=== PATIENT | female | born 1985 | race Caucasian/White ===

== ENCOUNTER 2020-01-27 17:43 | Emergency (ER) | payer BC, SELFPAY ==
--- NOTE | ~2020-01-27 | CT_ITS ---
EXAMINATION: CT brain wo con DATE: 01/27/2020 18:08 INDICATION: Head injury. TECHNIQUE: Computed tomography (CT) of the head was performed without intravenous contrast. The mA wa s adjusted according to patient size. Iterative reconstruction technique was employed. The dose-lengt h product was 605.33 mGy-cm. COMPARISON: None FINDINGS: There is no intracranial hemorrhage, acute infarction, or abnormal intracranial mass lesion . The ventricles are normal in size. There is mucosal thickening in the paranasal sinuses. The mastoi d air cells are normal. There is cerumen in the external auditory canals. IMPRESSION: 1. Normal brain. Reviewed, dictated and finalized at location A. IMPRESSION: 1. Normal brain.
--- NOTE | ~2020-01-27 | CT_ITS ---
EXAMINATION: CT cervical spine wo con DATE: 01/27/2020 18:08 INDICATION: Head injury. TECHNIQUE: Computed tomography (CT) of the cervical spine was performed without intravenous contrast. Automated exposure control and iterative reconstruction technique were employed. The dose-length pro duct was 134.44 mGy-cm. COMPARISON: None FINDINGS: There is kyphosis of cervical spine. Vertebral body heights are normal. There is mildly dec reased disc height at C5-C6. There is a benign bone island in T1 spinous process. The following disc levels are specifically discussed: C2-C3: There is no uncovertebral joint osteoarthritis. There is mild left facet joint osteoarthritis. There is no neural foraminal stenosis. There is no central canal stenosis. C3-C4: There is no uncovertebral joint osteoarthritis. There is no facet joint osteoarthritis. There is no neural foraminal stenosis. There is no central canal stenosis. C4-C5: There is no uncovertebral joint osteoarthritis. There is mild left facet joint osteoarthritis. There is no neural foraminal stenosis. There is no central canal stenosis. C5-C6: There is no uncovertebral joint osteoarthritis. There is no facet joint osteoarthritis. There is no neural foraminal stenosis. There is no central canal stenosis. C6-C7: There is no uncovertebral joint osteoarthritis. There is no facet joint osteoarthritis. There is no neural foraminal stenosis. There is no central canal stenosis. C7-T1: There is no uncovertebral joint osteoarthritis. There is moderate bilateral facet joint osteoa rthritis. There is no neural foraminal stenosis. There is no central canal stenosis. IMPRESSION: 1. No fracture. 2. Mild cervical spondylosis. Reviewed, dictated and finalized at location A.
[2020-01-27 17:48] VITALS: BP 133/98; PULSE 95; RESP 18; TEMP 36.6; O2SAT 100
--- NOTE | 2020-01-27 17:59 | ED.FALL ---
HPI - Fall General Chief Complaint: Fall Stated Complaint: fall from rope onto head Time Seen by Provider: 01/27/20 17:58 History of Present Illness HPI Narrative: Patient is a 34-year-old female who was on a ropes course when she fell 10 to 15 feet. She struck the ground with her feet and then moved sideways onto her chest and face. Brief LOC with confusion immediately afterwards. Did not know her daughter was or what was going on. This is since improved. She has pain to her lip which is swollen. No nausea/vomiting/change in vision or hearing. Took ibuprofen for headache Related Data Home Medications Medication Instructions Recorded Confirmed dextroamphetamine-amphetamine 01/27/20 01/27/20 montelukast mg 01/27/20 Allergies Allergy/AdvReac Type Severity Reaction Status Date / Time acetaminophen Allergy Unknown Unknown Verified 01/27/20 17:51 codeine Allergy Unknown Itching Verified 01/27/20 17:51 Review of Systems Review of Systems: All systems reviewed & are unremarkable except as noted in HPI and below Constitutional: Constitutional: Denies chills, Denies fever(s) and Denies weakness Eyes: Eyes: Denies change in vision and Denies photophobia ENT: Reports sore throat Comments: Lip pain Neurologic: Reports confusion, Reports syncope, Denies headache(s), Denies focal weakness and Denies numbness PMFSH Past Medical History Medical History (Updated 01/27/20 @ 18:25 by Dwayne Gutiérrez MD) Anxiety Surgical History Surgical History (Updated 01/27/20 @ 18:00 by Dwayne Gutiérrez MD) No history of previous surgery Social History Social History (Updated 01/27/20 @ 18:01 by Dwayne Gutiérrez MD) Smoking status: Never smoker Gender identity (if verbalized by the patient): Female Exam Narrative: Exam Narrative: GENERAL: Uncomfortable-appearing, well-nourished, and in no acute distress. HEAD: Normocephalic, atraumatic. EYES: PERRL and EOMI. ENT: Mucous membranes moist. Swollen right lower lip with overlying abrasion. No through and through laceration. Normal teeth. CHEST: Clear to auscultation. No respiratory distress. HEART: Regular rate and rhythm. Normal peripheral pulses. EXTREMITIES: Normal range of motion. No edema. Abrasions to right ankle with mild anterior tenderness but range of motion intact and no swelling or bruising. SKIN: Warm, dry, no rash. NEURO: No focal deficits. Alert and oriented x3. Course Course Emergency Course: Informed of results. Impression. Discharge home. Vital Signs Vital signs: Vital Signs Temperature 98 F 01/27/20 17:48 Pulse Rate 95 01/27/20 17:48 Respiratory Rate 18 01/27/20 17:48 Blood Pressure 133/98 H 01/27/20 17:48 Pulse Oximetry 100 01/27/20 17:48 Temperature 98 F 01/27/20 17:48 Pulse Rate 95 01/27/20 17:48 Respiratory Rate 18 01/27/20 17:48 Blood Pressure 133/98 H 01/27/20 17:48 Pulse Oximetry 100 01/27/20 17:48 Discharge Plan Discharge Clinical Impression: Concussion with loss of consciousness Patient Disposition: Home, Self-Care Condition: Stable Instructions: Concussion (ED) Additional Instructions: Return the ER if you have fever over 100.4 ?F, you cannot keep down food or water, you have chest pain or shortness of breath, you have additional concerns. Prescriptions: New cyclobenzaprine 10 mg tablet 10 mg PO TID PRN (Reason: muscle spasm) Qty: 10 RF: 0 ondansetron 4 mg tablet,disintegrating 4 mg PO Q6H PRN (Reason: nausea and vomiting) Qty: 10 RF: 0 naproxen 500 mg tablet 500 mg PO BID Qty: 20 RF: 0 No Action dextroamphetamine-amphetamine 20 mg tablet RF: 0 montelukast 10 mg tablet RF: 0 Follow-up/Referrals: Jocelyn,Kat Ortiz, PRODUCT MARKETING INTERN-[employer] [Primary Care Provider] - 1 Week
[2020-01-27 18:31] VITALS: BP 128/95; PULSE 88; RESP 12; O2SAT 99
== END 2020-01-27 18:33 | disposition home or self-care (01) ==
PROVIDERS: Emergency Provider Emergency Medicine; PCP Nurse Practitioner Family
DX: S06.0X9A Concussion with loss of consciousness of unspecified duration, initial encounter (principal); W17.89XA Other fall from one level to another, initial encounter
CPT/HCPCS: 70450; 72125; 99284

== ENCOUNTER 2020-02-05 09:54 | Outpatient (CLI) | payer BC, SELFPAY ==
--- NOTE | ~2020-02-05 | XR_ITS ---
EXAMINATION: XR hand LT min 3V, XR wrist LT min 3V EXAM DATE: 02/05/2020 10:17 INDICATION: No known recent injury provided at this time. Pain of the left hand and wrist. TECHNIQUE: Left hand frontal, lateral and oblique projections obtained and reviewed. Left wrist fron laurita, frontal with ulnar deviation, oblique and lateral projections obtained and reviewed. There is n o prior study for comparison. FINDINGS: Left metacarpal bones are unremarkable. Left wrist scapholunate joint space is maintained . There are no acute fractures or dislocations identified. There is no subcutaneous gas. The soft t issue is unremarkable. There are no radiopaque foreign bodies. There are no bony erosions identifi ed. IMPRESSION: 1. Unremarkable left hand, wrist exam. Reviewed, dictated and finalized at location B. IMPRESSION: 1. Unremarkable left hand, wrist exam.
== END 2020-02-05 09:55 ==
LOC: MICIMG 09:55
PROVIDERS: PCP Nurse Practitioner Family; Visit Provider Nurse Practitioner Family
DX: M25.532 Pain in left wrist (principal)
CPT/HCPCS: 73110; 73130

== ENCOUNTER 2020-04-04 13:56 | Outpatient (CLI) | payer BC, SELFPAY ==
--- NOTE | ~2020-04-04 | MR_ITS ---
EXAMINATION: MR wrist LT w con DATE: 04/04/2020 16:24 INDICATION: Pancreatic fibrocartilage complex injury presenting with left wrist pain post fall while climbing 2 months prior. TECHNIQUE: Magnetic resonance imaging (MRI) of the left wrist was performed following intra-articular gadolinium contrast injection and without intravenous contrast. Details of the radiocarpal joint inj ection have been dictated separately. Sequences included coronalT1-weighted FS FSE obtained before t he joint injection and post injection axial, sagittal and coronal T1-weighted FS FSE and T2-weighted FS FSE. COMPARISON: None FINDINGS: Intrinsic ligaments: The scapholunate and lunotriquetral ligaments are normal. Triangular fibrocartilage complex (TFCC): The triangular fibrocartilage including its foveal and styloid attachments as well as the dorsal and volar radioulnar ligaments are normal. The ulnar collateral ligament, ulnotriquetral ligament and men iscal homologue are normal. The extensor carpi ulnaris tendon sheath is normal. Extensor wrist: Extensor tendons of the wrist are normal. There is some contrast extending along the tendon sheaths o f the second and third dorsal compartments and extending into the surrounding subcutaneous tissues co nsistent with extravasation of a likely partially extra-articular contrast injection. Flexor wrist: The flexor tendons of the wrist are normal. No abnormality in the carpal tunnel with normal median n erve. Guyon's canal: Guyon's canal including the ulnar nerve and artery are normal. Bones/other: There is prominent marrow edema throughout the capitate. No fracture line is evident either on the cu rrent MRI or the prior radiographs which could represent a bone contusion although given the interval of elapsed time could not exclude a healing nondisplaced fracture. Marrow signal is otherwise normal throughout the remainder of the visualized bones. No pathologic marrow replacing process. Joint spac es appear normal with no focal cartilage irregularities. There is a small joint effusion at the dorsa l aspect of the midcarpal joint which is without evident contrast signal suggesting this is unrelated to the radiocarpal joint injection and is likely reactive related to the apparent capitate injury. IMPRESSION: 1. Marrow edema throughout the capitate consistent with either bone contusion or occult healing nondi splaced fracture with likely associated small reactive joint effusion in the midcarpal joint. 2. Normal triangular fiber cartilage complex and intrinsic ligaments of the proximal carpal row. Reviewed, dictated and finalized at location H. NATION TECHNICIAN IMPRESSION: 1. Marrow edema throughout the capitate consistent with either bone contusion o r occult healing nondisplaced fracture with likely associated small reactive laura int effusion in the midcarpal joint. 2. Normal triangular fiber cartilage complex and intrinsic ligaments of the pro ximal carpal row.
--- NOTE | ~2020-04-04 | XR_ITS ---
EXAMINATION: XR fl inj wrist LT for MR/CT DATE: 04/04/2020 15:29 INDICATION: Left wrist triangular fibrocartilage tear. TECHNIQUE: A time-out was performed to verify the patient's name, date of , and procedure to b e performed. The skin overlying the left radiocarpal joint was prepped and draped in usual sterile fa shion. Anesthetic was administered with 1% lidocaine subcutaneously. A 23 G needle was advanced und er fluoroscopic guidance into the joint. Subsequently, injectate consisting of 2 mL of 1:200 Multiha nce, 1:4 1% lidocaine, and 1:4 Omnipaque 240 was instilled. The needle was removed and the entry sit e was cleaned and dressed. There were no immediate complications. Fluoroscopy exposure time was 0.4 minutes. The total number of images was 4. FINDINGS: Real-time fluoroscopy demonstrates the needle and contrast in the left radiocarpal joint. IMPRESSION: 1. Successful left radiocarpal joint injection of contrast for subsequent MR arthrography. Reviewed, dictated and finalized at location A. NT SUPPORT REPRESENTATIVE IMPRESSION: 1. Successful left radiocarpal joint injection of contrast for subsequent MR ar thrography.
== END 2020-04-04 13:57 ==
PROVIDERS: PCP Nurse Practitioner Family; Visit Provider Internal Medicine
DX: S69.82XA Other specified injuries of left wrist, hand and finger(s), initial encounter (principal); S63.8X2A Sprain of other part of left wrist and hand, initial encounter
CPT/HCPCS: 20605; 73222; 77002; A9577; Q9966

== ENCOUNTER 2021-02-02 19:05 | Emergency (ER) | payer BC, SELFPAY ==
--- NOTE | ~2021-02-02 | XR_ITS ---
EXAMINATION: XR femur LT min 2V, XR femur RT min 2V DATE: 02/02/2021 22:16 (accession [id number]), 02/02/2021 22:17 (accession [id number]) INDICATION: Pain and cramping to the bilateral mid to upper thighs with popping sensation when runnin g. TECHNIQUE: 1. Overlapping proximal and distal, AP and lateral views of the left femur were obtained. 2. Overlapping proximal and distal, AP and lateral views of the right femur were obtained. COMPARISON: None FINDINGS: Normal alignment at the bilateral hips and knees. No fracture or suspected avascular necrosis. There is decreased anterosuperior femoral head/neck offset on both the left and right with cystic change at the right anterosuperior femoral head neck junction which can be seen in the setting of cam-type fem oral acetabular impingement. Bilateral hip joint spaces are normal with tiny marginal osteophytes abo ut the femoral heads consistent with minimal osteoarthritis. Bilateral knee joint spaces appear bonilla l on nonweightbearing imaging. No knee joint effusions. Soft tissues are unremarkable. IMPRESSION: 1. Bilateral decreased femoral head neck offset which can predispose towards cam-type femoral acetabu lar impingement. No acute osseous abnormality. Reviewed, dictated and finalized at location A. IMPRESSION: 1. Bilateral decreased femoral head neck offset which can predispose towards ca m-type femoral acetabular impingement. No acute osseous abnormality.
[2021-02-02 19:22] VITALS: BP 125/86; PULSE 87; RESP 18; TEMP 37.1; O2SAT 100
--- NOTE | 2021-02-02 22:13 | ED.LOWEXIN ---
HPI - Extremity Injury (Lower) General Chief Complaint: Extremity Injury, Lower Stated Complaint: leg pain Time Seen by Provider: 02/02/21 21:35 Source: patient Mode of arrival: ambulatory Limitations: no limitations History of Present Illness HPI Narrative: Patient is a 35-year-old female complaining of bilateral thigh pain after playing kickball night and heard something pop after catching the ball and kicking. Patient denies any knee or leg pain. Patient ambulatory after the incident. Patient denies any other pain or injuries per Related Data Home Medications Medication Instructions Recorded Confirmed dextroamphetamine-amphetamine 01/27/20 01/27/20 montelukast mg 01/27/20 Allergies Allergy/AdvReac Type Severity Reaction Status Date / Time acetaminophen Allergy Unknown Unknown Verified 01/27/20 17:51 codeine Allergy Unknown Itching Verified 01/27/20 17:51 Review of Systems Review of Systems: All systems reviewed & are unremarkable except as noted in HPI and below Constitutional: Constitutional: Denies body ache(s), Denies chills, Denies excessive sweating, Denies fatigue, Denies fever(s), Denies headache(s), Denies lethargy, Denies malaise, Denies weakness and Denies weight loss Eyes: Eyes: Denies blurry vision, Denies change in vision and Denies loss of vision ENT: Denies dizziness, Denies ear discharge, Denies headache(s), Denies lip swelling, Denies epistaxis, Denies nasal congestion, Denies neck pain, Denies throat swelling and Denies tongue swelling Cardiovascular: Cardiovascular: Denies chest pain, Denies chest pain at rest, Denies chest pain with activity, Denies diaphoresis, Denies rapid heart rate, Denies edema, Denies irregular heart rhythm, Denies lightheadedness, Denies palpitations, Denies dyspnea and Denies dyspnea on exertion Respiratory: Respiratory: Denies chest congestion, Denies cough, Denies hemoptysis, Denies dyspnea and Denies dyspnea on exertion Gastrointestinal: Gastrointestinal: Denies abdominal pain, Denies melena, Denies hematochezia, Denies diarrhea, Denies nausea, Denies vomiting and Denies hematemesis Musculoskeletal: Musculoskeletal: Denies abnormal gait, Denies deformity, Denies joint swelling, Denies limited range of motion, Denies neck pain and Denies numbness Neurologic: Denies Abnormal speech present, Denies abnormal gait, Denies confusion, Denies dizziness, Denies headache(s), Denies focal weakness, Denies loss of vision, Denies numbness, Denies Other visual disturbances, Denies Sensory deficit (Neuro) and Denies weakness Psychiatric: Psychiatric: Denies confusion, Denies depression, Denies auditory hallucinations, Denies homicidal ideation and Denies suicidal ideation Endocrine: Endocrine: Denies cold intolerance, Denies excessive sweating, Denies fatigue, Denies heat intolerance and Denies palpitations Hematologic/Lymphatic: Hematologic/Lymphatic: Denies easy bleeding and Denies easy bruising Allergic/Immunologic: Allergic/Immunologic: Denies lip swelling, Denies throat swelling and Denies tongue swelling PMFSH Past Medical History Medical History (Updated 02/02/21 @ 23:44 by Gary Villatoro MD) Anxiety Surgical History Surgical History (Updated 01/27/20 @ 18:00 by Dwayne Gutiérrez MD) No history of previous surgery Social History Social History (Updated 01/27/20 @ 18:01 by Dwayne Gutiérrez MD) Smoking status: Never smoker Gender identity (if verbalized by the patient): Female Comments Past medical history: ADD Family history: None contributory Social history: Non-smoker, no EtOH or drug use Exam Const: General: cooperative, healthy appearing, comfortable, no acute distress, well developed, alert and awake; No confusion Orientation/consciousness: oriented to person, oriented to place, oriented to time, patient oriented x3 and No confusion Limitations: no limitations HENMT: Head: normal to inspection, normocephalic and atraumatic Ears: heari
[2021-02-02] MEDS: CYCLOBENZAPRINE HCL 10 MG TABLET PO (22:37)
[2021-02-02 23:54] VITALS: BP 127/92; PULSE 73; RESP 16; TEMP 37.2; O2SAT 100
== END 2021-02-02 23:56 | disposition home or self-care (01) ==
PROVIDERS: Emergency Provider Emergency Medicine; PCP Nurse Practitioner Family
DX: S76.919A Strain of unspecified muscles, fascia and tendons at thigh level, unspecified thigh, initial encounter (principal); Y93.6A Activity, physical games generally associated with school recess, summer camp and children; F41.9 Anxiety disorder, unspecified; F98.8 Other specified behavioral and emotional disorders with onset usually occurring in childhood and adolescence; X50.9XXA Other and unspecified overexertion or strenuous movements or postures, initial encounter
CPT/HCPCS: 73552; 96372; 99284; A9270; J1100

== ENCOUNTER 2021-06-18 14:56 | Emergency (ER) | payer BC, SELFPAY ==
[2021-06-18 15:03] VITALS: BP 120/84; PULSE 79; RESP 16; TEMP 37.2; O2SAT 100
--- NOTE | 2021-06-18 15:24 | ED.URI ---
HPI - URI/Sore Throat General Chief Complaint: Upper Respiratory Infection Stated Complaint: Sore Throat Time Seen by Provider: 06/18/21 15:20 Source: patient, RN notes reviewed and old records reviewed Mode of arrival: ambulatory Limitations: no limitations History of Present Illness HPI Narrative: 36-year-old female presents to [facility] with complaints of sore throat, ear pain since Tuesday evening Patient states that her throat feels like she has knives in it with painful swallowing,and bilateral ears are on fire. Patient denies any known fevers, chills or sweats, denies any cough or runny nose and denies any body aches. Patient reports that she has some headache discomfort. Patient has not had COVID or Flu immunizations. Patient rates her pain 8/10 and has been taking Ibuprofen and Tylenol for her symptoms. MD elicited complaint: sore throat Onset (ago): day(s) (3) Consistency: constant Severity: moderate Pain scale (0-10): 8 Related Data Home Medications Medication Instructions Recorded Confirmed dextroamphetamine-amphetamine 20 mg PO DAILY 01/27/20 06/18/21 dextroamphetamine-amphetamine 10 mg PO AC 06/18/21 06/18/21 Allergies Allergy/AdvReac Type Severity Reaction Status Date / Time codeine Allergy Mild Itching Verified 06/18/21 15:17 Review of Systems Review of Systems: CONSTITUTIONAL: Denies any known fever, chills, or sweats. EYES: Denies visual changes, redness, or discharge. ENT: Denies rhinorrhea, congestion,positive for sore throat, bilateral ear otalgia. CARDIOVASCULAR: Denies chest pain, palpitations, or edema. RESPIRATORY: Denies cough or dyspnea. GASTROINTESTINAL: Denies abdominal pain, nausea, vomiting, or diarrhea. GENITOURINARY: Denies dysuria or hematuria. SKIN: Denies rash or itching. MUSCULOSKELETAL: Denies back pain, joint pain, or myalgia. NEUROLOGIC: Positive for some headache,no numbness, or weakness. PSYCHIATRIC: Positive for history of anxiety or depression. All systems reviewed & are unremarkable except as noted in HPI and below PMFSH Past Medical History Medical History (Updated 06/18/21 @ 15:53 by Olya Hernandez NP) ADD (attention deficit disorder) Anxiety Surgical History Surgical History (Updated 06/18/21 @ 15:53 by Olya Hernandez NP) History of tonsillectomy Social History Social History Smoking status: Never smoker Gender identity (if verbalized by the patient): Female Comments At time of signature, agree with nursing past medical, surgical, social and family history. There is no relevant family history pertinent to the presenting complaint Exam Narrative: GENERAL: Ill appearing, well-nourished, and in no acute distress. HEAD: Normocephalic, atraumatic. EYES: PERRLA and EOMI. ENT: Nares clear, no rhinorrhea or epistaxis. Mucous membranes moist.TM's normal with good light reflex, soft ear wax present, Throat red with no exudates or lesions, tonsils absent NECK: Supple. lymphadenopathy CHEST: Clear to auscultation. No respiratory distress.no cough noted SAO2 100% on room air HEART: Regular rate and rhythm. No murmur heard. Normal peripheral pulses. ABDOMEN: Soft, nontender, nondistended, normal active bowel sounds. EXTREMITIES: Normal range of motion. No edema. SKIN: Warm, dry, no rash. NEURO: No focal deficits. Alert and oriented x3. Course Course Level of Care: Express Care Visit Vital Signs Vital signs: Vital Signs Temperature 37.2 C 06/18/21 15:03 Pulse Rate 79 06/18/21 15:03 Respiratory Rate 16 06/18/21 15:03 Blood Pressure 120/84 06/18/21 15:03 Pulse Oximetry 100 06/18/21 15:03 Temperature 37.2 C 06/18/21 15:03 Pulse Rate 79 06/18/21 15:03 Respiratory Rate 16 06/18/21 15:03 Blood Pressure 120/84 06/18/21 15:03 Pulse Oximetry 100 06/18/21 15:03 MDM - URI/Sore Throat Differential Diagnosis Differential diagnosis: Likely upper respiratory infecti
== END 2021-06-18 15:43 | disposition home or self-care (01) ==
PROVIDERS: Emergency Provider Registered Nurse; PCP Nurse Practitioner Family
DX: U07.1 COVID-19 (principal); F98.8 Other specified behavioral and emotional disorders with onset usually occurring in childhood and adolescence
CPT/HCPCS: 87081; 87426; 87880; 99213; C9803; G0463

== ENCOUNTER 2023-11-21 14:26 | Emergency (ER) | payer BC, SELFPAY ==
[2023-11-21 14:30] VITALS: BP 144/89; PULSE 61; RESP 15; TEMP 36.7; O2SAT 100
--- NOTE | 2023-11-21 16:30 | PC.NURSE ---
Patient seen ambulating out of ED with steady gait and in no acute distress.
--- NOTE | 2023-11-21 17:03 | PC.NURSE ---
Patient not found when called for repeat VS.
== END 2023-11-21 17:39 | disposition left against medical advice (07) ==
PROVIDERS: PCP Nurse Practitioner Family
DX: R10.9 Unspecified abdominal pain (principal)
CPT/HCPCS: 99199

== ENCOUNTER 2024-07-13 14:28 | Outpatient (CLI) | payer BC, SELFPAY ==
[2024-07-13 15:01] LABS: Anion Gap 10 mmol/L (4-12); Blood Urea Nitrogen 5 mg/dL (7-17); Calcium 8.6 mg/dL (8.4-10.2); Carbon Dioxide 29 mmol/L (22-30); Chloride 103 mmol/L (98-107); Estimated Glomerular Filt Rate > 60; Glucose 91 mg/dL (65-110); Potassium 3.1 mmol/L (3.4-5.0); Sodium 142 mmol/L (137-145)
[2024-07-13 15:05] LABS: Basophils Percent Auto 0.4 % (0.2-1.2); Eosinophils Absolute Auto 0.2 K/mm3 (0-0.3); Eosinophils Percent Auto 3.1 % (0-4.4); Hematocrit 35.7 % (37.0-47.0); Hemoglobin 12.2 g/dL (12.0-15.0); Immature Granulocyte Absolute 0.02 K/mm3 (0.00-0.031); Immature Granulocyte Percent A 0.4 % (0-0.5); Lymphocytes Absolute Auto 1.42 K/mm3 (0.9-3.2); Lymphocytes Percent Auto 29.3 % (18.3-44.2); Mean Corpuscular HGB Conc 34.2 g/dl (32-36); Mean Corpuscular Hemoglobin 30.2 pg (26-34); Mean Corpuscular Volume 88.4 fl (80-100); Mean Platelet Volume 9.4 fl (7.4-10.4); Monocytes Absolute Auto 0.4 K/mm3 (0.1-0.6); Monocytes Percent Auto 8.3 % (2.6-8.5); Neutrophils Absolute Auto 2.8 K/mm3 (1.3-6.7); Neutrophils Percent Auto 58.5 % (45.5-73.1); Platelet Count Result 238 k/mm3 (150-375); Red Blood Count 4.04 M/mm3 (4.2-5.4); Red Cell Distribution Width 14.9 % (11.5-14.5); White Blood Count 4.8 K/mm3 (4.5-10.0)
[2024-07-13 15:26] LABS: Iron 70 ug/dL (37-170)
[2024-07-13 15:37] LABS: Percent Iron Saturation 25 % (20-50)
[2024-07-16 15:57] LABS: Immunoglobulin A 202 mg/dL (47-310); TTG IGA AB <1.0 U/mL
[2024-07-17 17:03] LABS: Beef IgE (F27) <0.10 kU/L; Lamb (F88) IgE <0.10 kU/L; Lamb Class 0; Pork (F26) IgE <0.10 kU/L; Pork Class 0
== END 2024-07-13 14:29 | disposition home or self-care (01) ==
LOC: ANHLAB 14:30
PROVIDERS: PCP Nurse Practitioner Family; Visit Provider Nurse Practitioner Family
DX: R11.2 Nausea with vomiting, unspecified (principal); K21.9 Gastro-esophageal reflux disease without esophagitis; R19.7 Diarrhea, unspecified; R10.9 Unspecified abdominal pain
CPT/HCPCS: 36415; 80048; 82784; 83540; 83550; 85025; 86008; 86364

== ENCOUNTER 2024-07-25 07:40 | Outpatient (CLI) | payer BC, SELFPAY ==
--- NOTE | ~2024-07-25 | NM_ITS ---
EXAM: NM gastric emptying study DATE: 07/25/2024 13:40 INDICATION: Nausea with vomiting, unspecified. TECHNIQUE: A gastric emptying study was performed using the methodology of Maryam RANDOLPH, et al. J Nucl Med 2007; 48:568-572. The patient was given a meal consisting of 2 scrambled eggs labeled with 1 mCi Tc-99m sulfur colloid, 2 slices of toast, two packages of jam, and approximately 120 mL of water. Si multaneous anterior and posterior 1-min images of the abdomen were obtained with the patient supine a t multiple time points over a total period of 4 hours. The geometric mean of anterior and posterior v iews was determined, and the percentage retention was calculated for each time point. COMPARISON: CT abdomen and pelvis 01/16/2016 FINDINGS: Gastric retention of the radiotracer-labeled meal was 52%, 13%, and 7% at the 1-hour, 2-ho ur, and 4-hour time points, respectively. With this technique, apparent rapid gastric emptying is sug gested by <30% gastric retention at 1 hour. Delayed gastric emptying is defined by gastric retention of >90% at 1 hour, >60% retention at 2 hours, or >10% retention at 4 hours. IMPRESSION: 1. Normal gastric emptying. Reviewed, dictated and finalized at location B. IMPRESSION: 1. Normal gastric emptying.
--- OUTSIDE RECORDS SUMMARY | 2024-07-25 07:44 | XMS_ITS | Data Portability ---
Author Organization [place] - [facility], [facility]_ Family Practice Address [address] [place] [address] Care Team Providers Care Football Pad Repairer Name Role Phone DARIEN SANDERSON Primary Care Provider [phone] DARIEN SANDERSON Referring Provider [phone] SAYDA PAULSON Primary Care Provider DORON CAST Psychiatrist Assessment No assessment recorded. Plan of Treatment Reminders Order Date Submit Date Provider Last Modified By Organization Details Last Modified Time Details Appointments None record ed. Lab None record ed. Referral None record ed. Procedures None record ed. Surgeries None record ed. Imaging None record ed. Medication Orders None record ed. Patient TargetsNo targets recorded. Patient InstructionsNo instructions recorded. Reason for Referral None Reported. Results Created Date Observation Date Name Description Value Unit Range Abnormal Flag Note LastModifiedBy Organization Detail LastModifiedTime Result Notes None recorded. Problems Name Problem SNOMED Code Status Onset Date Resolution Date Notes Provider Name and Address Organization Details Recorded Time Lesion of skin of face 626534912900 Active 2021 Not Available [facility] 3 19:01:15 Excessive cerumen in ear canal 506155017 Active 2016 Not Available [facility] 3 19:01:15 Pain of right elbow joint 2387831100683 9109 Active 2018 Not Available [facility] 3 19:01:15 Otalgia 60466967 Active 2016 Not Available [facility] 3 19:01:15 Otalgia 20257393 Active 2016 Not Available [facility] 3 19:01:15 Wrist joint pain 112621190 Active Not Available [facility] 3 19:01:15 Anemia 834872401 Active Not Available [facility] 3 19:01:15 Attention deficit hyperactiv ity disorder, predominan tly inattentiv e type 80990196 Active 2017 Not Available [facility] 3 19:01:15 Sinusitis 65001685 Active Not Available [facility] 3 19:01:16 Disorder of vitamin D 564078308 Active 2020 Not Available [facility] 3 19:01:16 Postconcus heather syndrome 92294139 Active 2019 Not Available [facility] 3 19:01:16 Attention deficit hyperactiv ity disorder 327338090 Active 2016 Not Available [facility] 3 19:01:16 Cellulitis of upper limb 031131364 Active Not Available [facility] 3 19:01:16 Anxiety 17809884 Active Not Available [facility] 3 19:01:16 Influenza 2492963 Active Not Available [facility] 3 19:01:16 Otitis media 19228612 Active 2016 Not Available [facility] 3 19:01:16 Otitis media 47918045 Active 2016 Not Available [facility] 3 19:01:16 Acid reflux 642171651 Active 2019 Not Available [facility] 3 19:01:16 Problem Notes None recorded. Procedures Surgical History Date Name Laterality Status Provider Name and Address Organization Details Recorded Time excision of cyst of ovary completed Not Available [facility] 05/23/2022 18:59:45 Tonsillectomy completed Not Available [facility] 05/23/2022 18:59:45 Foot Surgery completed Not Available [facility] 05/23/2022 18:59:45 Imaging Results None recorded. Procedure Notes None recorded. Medical Equipment None Reported. Allergies Allergen ID Allergen Name Allergen Category Reaction Reaction Severity Criticality Documentation Date Start Date Code Code System Note Provider Name and Address Organization Details Recorded Time [id number] codeine medicatio n itching Not available Not available 05/23/2022 2670 RxNorm nause a Not Available [facility] 3 19:02:45 Medications Name Sig Start Date Stop Date Status Note LastModified by Organization Details LastModified Time cyclobenza belén 10 mg tablet TAKE 1 TABLET BY MOUTH THREE TIMES DAILY NEEDED FOR MUSCLE SPASM 03/17 completed Not Available Not Available Not Available amoxicilli n 500 mg capsule Take 4 capsule( s) EVERY 1 hour prior to procedur e by oral route. 12/19 completed Not Available Not Available Not Available Augmentin 875 mg-125 mg tablet Take 1 tablet every 12 hours by oral route for 10 days. 09/10 completed Not Available Not Available Not Available prednisone 10 mg tablet Take by oral route. active Not Available Not Available No t Available trazodone 50 mg tablet TAKE 1 TABLET BY MOUTH ONCE DAILY AT BEDTIME 10/14 completed Not Available Not Available Not Available azithromyc in 250 mg tablet Take EVERY DAY by oral route active Not Available Not Available No t Available ibuprofen 800 mg tablet Take 1 tablet 3 times a day by oral route as needed. active Not Available Not Available No t Available valacyclov ir 1 gram tablet Take 2 tablets by mouth twice a day for 1 day. Take at onset of cold sore active Not Available Not Available No t Available meloxicam 15 mg tablet 03/17 completed Not Available Not Available Not Available prednisone 20 mg tablet Take 2 tablets every day by oral route for 5 days. active Not Available Not Available No t Available dextroamph etamine-am phetamine 10 mg tablet TAKE 1 TABLET BY MOUTH EVERY DAY AT NOON active Not Available Not Available No t Available Debrox 6.5 % ear drops INSTILL 5 DROPS INTO AFFECTED EAR(S) BY OTIC ROUTE 2 TIMES PER DAY 10/27 completed Not Available Not Available Not Available sulfametho xazole 800 mg-trimeth oprim 160 mg tablet Take 1 tablet every 12 hours by oral route for 10 days. 07/18 completed Not Available Not Available Not Available amoxicilli n 500 mg tablet Take 1 tablet twice a day by oral route for 10 days. 12/19 completed Not Available Not Available Not Available amoxicilli n 875 mg tablet Take 1 tablet every 12 hours by oral route for 10 days. active Not Available Not Available No t Available alprazolam 0.25 mg tablet 07/18 completed Not Available Not Available Not Available famotidine 20 mg tablet TAKE 1 TABLET BY MOUTH EVERY DAY FOR 30 DAYS. active do not refill for more than 30 days Not Available Not Available Not Available prednisolo ne acetate 1 % eye drops,susp ension INSTILL 1 DROP INTO RIGHT EYE THREE TIMES DAILY FOR 7 DAYS FOR INFLAMAT ION active Not Available Not Available No t Available methocarba mol 750 mg tablet Take 1 tablet 3 times a day by oral route as needed. active Not Available Not Available No t Available dextroamph etamine-am phetamine ER 20 mg 24hr capsule,ex tend release take one daily 10/06 completed Not Available Not Available Not Available Soma 350 mg tablet Take 1 tablet every day by oral route at bedtime. active Not Available Not Available No t Available cephalexin 500 mg capsule TAKE 1 CAPSULE BY MOUTH TWICE DAILY FOR 7 DAYS 10/27 completed Not Available Not Available Not Available oseltamivi r 75 mg capsule Take 1 capsule twice a day by oral route for 5 days. 03/03 completed Not Available Not Available Not Available neomycin-p olymyxin-d exameth 3.5 mg/mL-10,0 00 unit/mL-0. 1% eye drops active Not Available Not Available Not Available dexamethas one 4 mg tablet 09/08 completed Not Available Not Available Not Available dextroamph etamine-am phetamine 20 mg tablet TAKE 1 TABLET BY MOUTH EVERY DAY active Not Available Not Available No t Available diclofenac sodium 75 mg tablet,del ayed release Take 1 tablet twice a day by oral route. active Not Available Not Available No t Available montelukas t 10 mg tablet TAKE 1 TABLET BY MOUTH EVERY DAY active do not refill for more than 30 days Not Available Not Available Not Available mupirocin 2 % topical ointment APPLY SPARINGL Y TO AFFECTED AREA TWICE A DAY active Not Available Not Available No t Available ibuprofen 600 mg tablet Take 1 tablet 3 times a day by oral route. 03/03 completed Not Available Not Available Not Available methylpred nisolone 4 mg tablets in a dose pack Take as directed on package. 09/08 completed Not Available Not Available Not Available ondansetro n 4 mg disintegra ting tablet DISSOLVE 1 TABLET ON THE TONGUE EVERY 6 TO 8 HOURS FOR 5 DAYS NEEDED active Not Available Not Available No t Available fluticason e propionate 50 mcg/actuat ion nasal spray,susp ension [place] 2 sprays every day by intranas al route in the evening. 12/28 completed Not Available Not Available Not Available sertraline 50 mg tablet Take 1/2 tablet by mouth once daily for 1 week, then increase to 1 tablet by mouth daily. active Not Available Not Available No t Available dextroamph etamine-am phetamine 5 mg tablet TAKE 1 TABLET BY MOUTH ONCE DAILY NEEDED IN THE AFTERNOO N 10/28 completed Not Available Not Available Not Available naproxen 500 mg tablet TAKE 1 TABLET BY MOUTH TWICE DAILY NEEDED FOR PAIN 03/17 completed Not Available Not Available Not Available amoxicilli n 500 mg-potassi um clavulanat e 125 mg tablet Take 1 tablet every 12 hours by oral route for 10 days. 12/27 completed Not Available Not Available Not Available dextroamph etamine-am phetamine ER 15 mg 24hr capsule,ex tend release Take 1 capsule every day by oral route. 12/19 completed Not Available Not Available Not Available dextroamph etamine-am phetamine ER 25 mg 24hr capsule,ex tend release TAKE 1 CAPSULE BY MOUTH ONCE DAILY FOR 30 DAYS active Not Available Not Available No t Available escitalopr am 10 mg tablet TAKE 1 TABLET BY MOUTH ONCE DAILY active do not refill for more than 30 days Not Available Not Available Not Available cyclobenza belén 5 mg tablet Take 1 tablet 3 times a day by oral route as needed. active Not Available Not Available No t Available clonazepam 0.5 mg disintegra ting tablet Place 1 tablet twice a day by translin gual route as needed. active Not Available Not Available No t Available bupropion HCl XL 150 mg 24 hr tablet, extended release Take 1 tablet every day by oral route. active ADD Not Available Not Available No t Available nitrofuran toin monohydrat e/macrocry stals 100 mg capsule Take 1 capsule every 12 hours by oral route for 7 days. 04/11 completed Not Available Not Available Not Available Xyzal 5 mg tablet Take 1 tablet every day by oral route. 10/06 completed Not Available Not Available Not Available Xyzal 04/21 completed Not Available Not Available Not Available Vitamin D 5,000 unit tablet Take by oral route. 04/06 completed Not Available Not Available Not Available Vitamin D3 50 mcg (2,000 unit) capsule TAKE 1 CAPSULE BY MOUTH ONCE DAILY 08/21 completed Not Available Not Available Not Available Iron 100 Plus 02/11 completed QOD Not Available Not Available Not Available Vraylar 1.5 mg capsule TAKE 1 CAPSULE BY MOUTH ONCE DAILY FOR 90 DAYS active per psychia try. Dr Doron Cast Not Available Not Available Not Available ID NOW COVID-19 Test Kit TEST DIRECTED 10/27 completed Not Available Not Available Not Available Vitals Date Recorded Body mass index (BMI) Body height Oxygen saturation Oxygen saturation in Arterial blood by Pulse oximetry Heart rate Body temperature Body weight Systolic blood pressure Diastolic blood pressure Provider Name and Address Organization Details Last Updated DateTime 2 21.2 kg/m2 156.21 cm 98 % 98 % 80 /min 98.2 [degF] 53104.5 3 g 122 mm[Hg] 82 mm[Hg] Not Available [facility] 3 19:00:12 Date Recorded Body mass index (BMI) Body height Oxygen saturation Oxygen saturation in Arterial blood by Pulse oximetry Heart rate Respiratory rate Body temperature Body weight Systolic blood pressure Diastolic blood pressure Provider Name and Address Organization Details Last Updated DateTime 2 21.7 kg/m2 156.21 cm 98 % 98 % 74 /min 16 /min 98 [degF] 25989.3 1 g 122 mm[Hg] 82 mm[Hg] Not Available [facility] 3 19:00:12 Date Recorded Body mass index (BMI) Body height Oxygen saturation Oxygen saturation in Arterial blood by Pulse oximetry Heart rate Body temperature Body weight Systolic blood pressure Diastolic blood pressure Provider Name and Address Organization Details Last Updated DateTime 2 22.5 kg/m2 156.21 cm 99 % 99 % 78 /min 97.5 [degF] 11806.3 8 g 112 mm[Hg] 78 mm[Hg] Not Available [facility] 3 19:00:12 Date Recorded Body mass index (BMI) Body height Oxygen saturation Oxygen saturation in Arterial blood by Pulse oximetry Heart rate Body temperature Body weight Systolic blood pressure Diastolic blood pressure Provider Name and Address Organization Details Last Updated DateTime 2 22.3 kg/m2 156.21 cm 99 % 99 % 84 /min 97.9 [degF] 43978.0 8 g 122 mm[Hg] 80 mm[Hg] Not Available [facility] 3 19:00:12 Date Recorded Body height Body mass index (BMI) Body weight Body temperature Heart rate Oxygen saturation Oxygen saturation in Arterial blood by Pulse oximetry Systolic blood pressure Diastolic blood pressure Provider Name and Address Organization Details Last Updated DateTime 3 156.21 cm 25.3 kg/m2 48902.5 6 g 97.6 [degF] 76 /min 98 % 98 % 116 mm[Hg] 78 mm[Hg] [facility] 3 09:15:11 Social History Question Answer Notes LastModified by Organizat ion Details LastModified Time Tobacco Smoking Status Never Smoker Not Available [facility] 05/23/2022 18:59:32 Do You Have An Advance Directive? No [id number] Information not available 05/23/2022 What Is Your Level Of Alcohol Consumption? Occasional [id number].[id number] Information not available 05/23/2022 What Is Your Level Of Caffeine Consumption? Occasional MIGRATION.[id number] 6510 Information not available 05/23/2022 How Much Tobacco Do You Chew? None MIGRATION.[id number] 7430 Information not available 05/23/2022 In The 14 Days Before Symptom Onset, Have You Had Close Contact With A Laboratory-confir med COVID-19 While That Case Was Ill? No MIGRATION.[id number] Information not available 05/23/2022 In The 14 Days Before Symptom Onset, Have You Had Close Contact With A Person Who Is Under Investigation For COVID-19 While That Person Was Ill? No MIGRATION.[id number] Information not available 05/23/2022 Are You Currently Employed? Yes MIGRATION.[id number] Information not available 05/23/2022 What Type Of Diet Are You Following? REGULAR MIGRATION.[id number] 3032 Information not available 05/23/2022 Do You Or Have You Ever Used E-cigarettes Or Vape? 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 Yes [id number].[id number] Information not available 05/23/2022 Are You In An Abusive/frighteni ng Relationship? No MIGRATION.346901 2338 Information not available 05/23/2022 Do You Feel Safe At Home Yes MIGRATION.[id number] Information not available 05/23/2022 Do You Have A Medical Power Of [employer] Service Technician? No MIGRATION.279120 6072 Information not available 05/23/2022 What Was The Date Of Your Most Recent Tobacco Screening? 04/27/2023 [email or web address] Information not available 04/27/2023 Have You Ever Been Counseled For Unhealthy Alcohol Use? No MIGRATION.066910 5796 Information not available 05/23/2022 Do You Use Your Seat Belt Or Car Seat Routinely? Yes MIGRATION.194013 9839 Information not available 05/23/2022 Do You Have Smoke And Carbon Monoxide Detectors In Your Home? Yes MIGRATION.237149 2068 Information not available 05/23/2022 Are You Passively Exposed To Smoke? No MIGRATION.040111 5300 Information not available 05/23/2022 Do You Or Have You Ever Used Smokeless Tobacco? Never Used Smokeless Tobacco MIGRATION.[id number] 8124 Information not available 05/23/2022 Are There Any Smokers In Your House? No MIGRATION.704508 1668 Information not available 05/23/2022 How Much Tobacco Do You Smoke? No MIGRATION.057543 0923 Information not available 05/23/2022 Do You Use Any Illicit Or Recreational Drugs? No MIGRATION.028133 7606 Information not available 05/23/2022 Do You Use Sunscreen Routinely? Yes MIGRATION.209611 5802 Information not available 05/23/2022 Has Tobacco Cessation Counseling Been Provided? No MIGRATION.948173 4822 Information not available 05/23/2022 Have You Recently Traveled Abroad? No MIGRATION.445886 7799 Information not available 05/23/2022 Do You Have Any Dietary Restrictions? No MIGRATION.837454 6937 Information not available 05/23/2022 Do You Or Have You Ever Used Any Other Forms Of Tobacco Or Nicotine? No MIGRATION.984801 7551 Information not available 05/23/2022 Sex: Unknown Functional Status Question Answer Note LastModified by Organizat ion Details LastModified Time What is your exercise level? Moderate [id number].[id number] Information not available 05/23/2022 Mental Status None recorded. Family History Relationship Description Onset Age of this Age Resolved Age Notes LastModified by Organization Details LastModified Time Mother No current problems or disability [id number] Not available 05/23/2022 18:59:45 Father Hypertensive disorder MIGRATION.[id number] Not available 05/23/2022 18:59:45 Sister of unknown cause 25 MIGRATION.[id number] Not available 05/23/2022 18:59:45 Medical History Condition Response BLINDNESS N RHEUMATIC FEVER N KIDNEY STONES N BLADDER PROBLEMS N MRSA N OTHER # 1 N POLIO N LUNG DISEASE/DISORDER N RADIATION / CHEMOTHERAPY N COPD N Other # 2 N BLOOD DISEASES N SURGERY N EAR OR HEARING PROBLEMS N MUMPS N FEMALE PROBLEMS / INFECTIONS N DEPRESSION (INCLUDING POST ) N BOWEL PROBLEMS N STROKE/TIA N THYROID DISEASE N ULCERS N BENIGN PROSTATIC HYPERPLASIA N MEASLES N CERVICALGIA N TB SKIN TEST N MYOCARDIAL INFARCTION N PARAPELGIA N OBESITY N GERD/NAUSEA N ANEURYSM N URINARY/BLADDER/KIDNEY PROBLEMS N CORONARY ARTERY DISEASE (CAD) N MENIERE'S DISEASE N ADDICTION CONCERNS N ENDOMETRIOSIS N USE OF BLOOD THINNERS N SKIN PROBLEMS N EMPHYSEMA N GASTROINTESTINAL DISORDER N MUSCLE,JOINT OR BONE PROBLEMS N GASTROINTESTINAL BLEEDING N BLOOD CLOTS N ASTHMA N CATARACTS N ERECTILE DYSFUNCTION N GI PROBLEMS N CHF N Low Testosterone N NEUROPATHY N INFERTILITY N AIDS/HIV N FRACTURES N CHEMOTHERAPY / RADIATION N VISION/EYE PROBLEMS N LIVER DISEASE N MALE HYPOGONADISM N HYPERTENSION N ANXIETY DISORDER N BLOOD TRANSFUSION N ANEMIA/BLOOD DISORDER N CHRONIC EAR INFECTIONS N BRONCHITIS N TUBERCULOSIS N GLAUCOMA N FOOT PROBLEM N DIVERTICULITIS N SLEEP APNEA N CHICKENPOX N ALLERGIES/HAYFEVER N INFECTIOUS DISEASE N PROSTATE N HEART ARRHYTHMIA N INSOMNIA N HIGH CHOLESTEROL / HYPERLIPIDEMIA N EYE PROBLEMS N HYPERTHYROIDISM N EATING DISORDER N NEUROLOGICAL PROBLEMS N EDEMA N CHRONIC PAIN SYNDROME N HYPOTHYROIDISM N CAROTID BLOCKAGE N CONSTIPATION N BACK / NECK PROBLEMS N HAVE YOU BEEN HOSPITALIZED OR SEEN IN [facility] IN THE PAST YEAR ? N ATHEROSCLEROSIS N BREAST PROBLEMS N DIALYSIS N ECZEMA N FIBROMYALGIA N OSTEOPOROSIS N ARTHRITIS N NO SIGNIFICANT PAST MEDICAL HISTORY N APPENDICITIS N DIABETES, TYPE N BAD TEETH N HEARTBURN / REFLUX N ADD/ADHD N AUTISM SPECTRUM DISORDER (ASD) N HEPATITIS / LIVER DISEASE N PULMONARY DISEASE N GOUT N SLEEP DISORDER N ALZHEIMER'S DISEASE N PAIN N DEMENTIA N HERPES N SEIZURES/EPILEPSY N HEADACHES/MIGRAINES N VASCULAR DISEASE N PACEMAKER N DIZZINESS N HEART DISEASE/HEART PROBLEMS N KIDNEY DISEASE N SCARLET FEVER N MULTIPLE SCLEROSIS N DEVELOPMENTAL OR BEHAVIORAL DISORDERS N MENTAL DISORDER/ILLNESS N CANCER: SPECIFY N CARDIAC ARRHYTHMIA N PNEUMONIA N ATRIAL FIBRILLATION N Gall Stones N PULMONARY EMBOLISM N AUTOIMMUNE DISEASE N ABDOMINAL PAIN N Gynecological History Statement/Question Response Date of Last Mammogram 05/16/2009 Date of LMP 03/22/2022 Frequency of Cycle (Q days) 30 Menses Monthly Y Date of Last Pap Duration of Flow (days) 5 Current Control Method None Obstetrics History GPAL:G 1 P 0 0 0 0 Immunizations Vaccine Type Date Status Note Provider German ma and Address Organization Details Recorded Time Tdap 04/15/2019 completed Not Available [facility] 05/23/2022 19:02:34 Past Encounters Encounter ID Performer Location Encounter Start Date Encounter Closed Date Diagnosis/Indication Diagnosis SNOMED-CT Code Diagnosis ICD10 Code Diagnosis Note [id number] _ATHENA_M IGRATION_ DEFAULT_1 _4 , 08/20/2020 00:00:00 08/20/2020 12:44:04 [id number] [facility] [address] [address] 10/28/2020 00:00:00 10/28/2020 17:38:26 [id number] [facility] [address] [address] 03/17/2021 00:00:00 03/17/2021 12:21:50 [id number] _ATHENA_M IGRATION_ DEFAULT_1 _4 , 04/07/2021 00:00:00 04/07/2021 18:11:56 [id number] _ATHENA_M IGRATION_ DEFAULT_1 _4 , 04/16/2021 00:00:00 04/16/2021 10:20:25 [id number] _ATHENA_M IGRATION_ DEFAULT_1 _4 , 08/21/2021 00:00:00 08/21/2021 12:21:03 [id number] [facility] [address] [address] 09/08/2021 00:00:00 09/08/2021 10:01:07 [id number] [facility] [place] [address] [place] [address] 04/02/2022 00:00:00 04/02/2022 11:14:12 [id number] _BRIAN IGRATION_ DEFAULT_1 _4 , 04/21/2022 00:00:00 04/21/2022 11:45:01 [id number] Sayda Paulson NP [facility] [address] [place] [address] 10/14/2022 09:05:12 10/14/2022 09:27:02 Attention deficit hyperactivity disorder [id number] F90.9 Will continue current medication s. Patient would like to try mail order pharmacy. She will call with pharmacy info when she gets home.Sees Dr Cast (Psychiatr y but would like to keep ADHD meds rx with PCP) Health Concerns Section Related Observation LastModified by Organization Detai ls LastModified Time None Recorded Concern Status LastModified by Organization Details LastModified Time None Recorded Advance Directives Directive N: Payers Encounter Date Sequence Insurance Name Policy Number Policy Guevara Covered Member ID Guevara Member ID Guarantor Name 10/14/2022 1 [place] [id number] Jeb Bobo [id number] Kaye Bobo Notes Date Note Type Note Provider Name and Address Organization Details Recorded Time 10/14/2022 text/html Pt presents for f/u ADHD medications.who is rx vraylar? seeing Psychiatry When do you take meds:Everyday: yesMedication effects: noneDoing fine with work:Side effects: deniesAppetite: doing wellRegular routine: yesSleep: good sleepDenies SI/HI, CP, SOB, palpitations. Sayda Paulson NP [address] [place], [address], [facility] 10/14/2022 09:52:40 OBGyn Episode No OBEpisode recorded.
--- OUTSIDE RECORDS SUMMARY | 2024-07-25 07:44 | XMS_ITS | Data Portability ---
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 Explained about different options for her. Meds as directed. OTC symptomatic Rx explained in detail. Very good liquid intake explained. Educated about alarming symptoms to monitor at home and call us back Or get checked in ED if any concerns. F/u as directed. [email or web address] Not available 01/04/2023 17:06:11 01/13/2023 01/13/2023 D/w pt about her findings and further plan of care. Meds as directed. OTC Zyrtec/Clariti n/Adali po daily prn. OTC pain meds as directed prn with food. Strict hand hygiene explained in detail. Educated about alarming symptoms to monitor at home and call us back or get checked in ED in that case. F/u with Ophtho in few days if any concerns. F/u as directed. [email or web address] Not available 01/13/2023 11:08:57 Plan of Treatment Reminders Order Date Submit Date Provider Last Modified By Organization Details Last Modified Time Details Appointments None recorded. Lab None recorded. Referral None recorded. Procedures None recorded. Surgeries None recorded. Imaging None recorded. Medication Orders neomycin-po lymyxin-dex ameth 3.5 mg/mL-10,00 0 unit/mL-0.1 % eye drops 2022 023 [id number], [address] [facility], [place], [place], [id number], 3 11:01:13 Kenalog 40 mg/mL suspension for injection 2022 023 [email or web address] Not available 17:46:09 ondansetron 4 mg disintegrat ing tablet 2022 023 [facility] #[id number], [address] [facility], [place], [place], [id number], 3 16:34:30 fluticasone propionate 50 mcg/actuati on nasal spray,suspe nsion 2022 023 [facility], [address] [facility], [place], [place], [id number], 3 16:32:57 montelukast 10 mg tablet 2022 023 [facility], [address] [facility], [place], [place], [id number], 3 16:32:57 levocetiriz ine 5 mg tablet 2022 023 [facility], [address] [facility], [place], [place], [id number], 3 16:32:56 famotidine 20 mg tablet 2022 023 [facility], [address] [facility], [place], [place], [id number], 3 16:33:20 Patient TargetsNo targets recorded. Patient InstructionsNo instructions recorded. Reason for Referral None Reported. Results Created Date Observation Date Name Description Value Unit Range Abnormal Flag Note LastModifiedBy Organization Detail LastModifiedTime Result Notes None recorded. Problems Name Problem SNOMED Code Status Onset Date Resolution Date Notes Provider Name and Address Organization Details Recorded Time Lesion of skin of face 784790151615 Active 2021 Not Available [facility] 3 06:45:03 Excessive cerumen in ear canal 983234884 Active 2016 Not Available [facility] 3 06:45:03 Pain of right elbow joint 8679691140288 9109 Active 2018 Not Available [facility] 3 06:45:03 Otalgia 20846785 Active 2016 Not Available [facility] 3 06:45:03 Otalgia 20594371 Active 2016 Not Available [facility] 3 06:45:04 Wrist joint pain 081095072 Active Not Available [facility] 3 06:45:04 Anemia 828885431 Active Not Available [facility] 3 06:45:04 Attention deficit hyperactiv ity disorder, predominan tly inattentiv e type 82283695 Active 2017 Not Available [facility] 3 06:45:04 Sinusitis 30743119 Active Not Available [facility] 3 06:45:04 Disorder of vitamin D 536415550 Active 2020 Not Available [facility] 3 06:45:04 Postconcus heather syndrome 99334493 Active 2019 Not Available [facility] 3 06:45:04 Attention deficit hyperactiv ity disorder 361398464 Active 2016 Not Available [facility] 3 06:45:04 Cellulitis of upper limb 293870091 Active Not Available [facility] 3 06:45:05 Anxiety 39611373 Active Not Available [facility] 3 06:45:05 Influenza 3413625 Active Not Available [facility] 3 06:45:05 Otitis media 49289344 Active 2016 Not Available [facility] 3 06:45:05 Otitis media 23427970 Active 2016 Not Available [facility] 3 06:45:05 Acid reflux 374338374 Active 2019 Not Available [facility] 3 06:45:05 Dysuria 61501518 Active 2022 Kat Sanderson NP [address], [place], [address] , [facility] [employer] [facility] 3 10:53:48 Allergic rhinitis 33456795 Active 2022 Chino Carmichael MD [address], [place], [address] , [facility] [employer] [facility] 3 16:30:25 Nasal congestion 11898312 Active 2022 Chino Carmichael MD [address], [place], [address] , [facility] [employer] [facility] 3 16:31:03 Gastroesop hageal reflux disease without esophagiti s 767598137 Active 2022 Chino Carmichael MD [address], [place], [address] , [facility] [employer] [facility] 3 16:33:02 Nausea and vomiting 71158684 Active 2022 hCino Carmichael MD [address], [place], [address] , [facility] [employer] [facility] 3 16:33:46 Allergic conjunctiv itis of bilateral eyes 9349017904635 02 Active 2022 Chino Carmichael MD [address], [place], [address] , [facility] [employer] [facility] 3 10:59:04 Pain of bilateral eyes 7597435464380 09 Active 2022 MD [address], [place], [address] , [facility] [employer] [facility] 3 11:07:36 Sensation of irritation of eye proper 630176921 Active 2022 MD [address], [place], [address] , [facility] 3 11:07:58 Photophobi a 425419736 Active 2022 Chino Carmichael MD [address], [facility] [address], [place], [address] , [facility] 3 11:08:11 Problem Notes None recorded. Procedures Surgical History Date Name Laterality Status Provider Name and Address Organization Details Recorded Time excision of cyst of ovary completed Not Available [facility] 07/14/2022 06:39:30 Tonsillectomy completed Not Available [facility]22 06:39:30 Foot Surgery [facility] 06:39:30 Imaging Results None recorded. Procedure Notes None recorded. Medical Equipment None Reported. Allergies Allergen ID Allergen Name Allergen Category Reaction Reaction Severity Criticality Documentation Date Start Date Code Code System Note Provider Name and Address Organization Details Recorded Time 69381 codeine medicatio n itching Not available Not available 07/14/2022 2670 RxNorm nause a Not Available [facility] 3 06:52:04 Medications Name Sig Start Date Stop Date Status Note LastModified by Organization Details LastModified Time cyclobenzap rine 10 mg tablet TAKE 1 TABLET BY MOUTH THREE TIMES DAILY NEEDED FOR MUSCLE SPASM 03/17 completed Not Available Not Available Not Available amoxicillin 500 mg capsule Take 4 capsule(s ) EVERY 1 hour prior to procedure by oral route. 12/19 completed Not Available [...] TABLET BY MOUTH ONCE DAILY AT BEDTIME 01/04 completed Not Available Not Available Not Available azithromyci n 250 mg tablet Take EVERY DAY by oral route active Not Available Not Available No t Available ibuprofen 800 mg tablet Take 1 tablet 3 times a day by oral route as needed. active Not Available Not Available No t Available valacyclovi r 1 gram tablet Take 2 tablets by mouth twice a day for 1 day. Take at onset of cold sore active Not Available Not Available No t Available meloxicam 15 mg tablet 03/17 completed Not Available Not Available Not Available prednisone 20 mg tablet Take 2 tablets every day by oral route for 5 days. active Not Available Not Available No t Available dextroamphe tamine-amph etamine 10 mg tablet TAKE 1 TABLET BY MOUTH EVERY DAY AT NOON active Not Available Not Available No t Available Debrox 6.5 % ear drops INSTILL 5 DROPS INTO AFFECTED EAR(S) BY OTIC ROUTE 2 TIMES PER DAY 10/27 completed Not Available Not Available Not Available sulfamethox azole 800 mg-trimetho prim 160 mg tablet Take 1 tablet every 12 hours by oral route for 10 days. 07/18 completed Not Available Not Available Not Available amoxicillin 500 mg tablet Take 1 tablet twice a day by oral route for 10 days. 12/19 completed Not Available Not Available Not Available Kenalog 40 mg/mL suspension for injection Take 40 mg by injection route for 1 day. 2022 active Not Available Not Available Not Avai lable amoxicillin 875 mg tablet Take 1 tablet every 12 hours by oral route for 10 days. active Not Available Not Available No t Available alprazolam 0.25 mg tablet 07/18 completed Not Available Not Available Not Available famotidine 20 mg tablet TAKE 1 TABLET BY MOUTH EVERY DAY FOR 30 DAYS. 2023 active Not Available Not Available Not Avai lable prednisolon e acetate 1 % eye drops,suspe nsion INSTILL 1 DROP INTO RIGHT EYE THREE TIMES DAILY FOR 7 DAYS FOR INFLAMATI ON active Not Available Not Available No t Available methocarbam ol 750 mg tablet Take 1 tablet 3 times a day by oral route as needed. active Not Available Not Available No t Available dextroamphe tamine-amph etamine ER 20 mg 24hr capsule,ext end release take one daily 10/06 completed Not Available Not Available Not Available Soma 350 mg tablet Take 1 tablet every day by oral route at bedtime. active Not Available Not Available No t Available cephalexin 500 mg capsule TAKE 1 CAPSULE BY MOUTH TWICE DAILY FOR 7 DAYS 10/27 completed Not Available Not Available Not Available oseltamivir 75 mg capsule Take 1 capsule twice a day by oral route for 5 days. 03/03 completed Not Available Not Available Not Available neomycin-po lymyxin-dex ameth 3.5 mg/mL-10,00 0 unit/mL-0.1 % eye drops INSTILL 1 DROP INTO AFFECTED EYE(S) BY OPHTHALMI C ROUTE EVERY 4-6 HOURS active Not Available Not Available No t Available dexamethaso ne 4 mg tablet 09/08 completed Not Available Not Available Not Available dextroamphe tamine-amph etamine 20 mg tablet TAKE 1 TABLET BY MOUTH EVERY DAY active Not Available Not Available No t Available diclofenac sodium 75 mg tablet,stoney yed release Take 1 tablet twice a day by oral route. active Not Available Not Available No t Available montelukast 10 mg tablet TAKE 1 TABLET BY MOUTH EVERY DAY active Not Available Not Available No t Available mupirocin 2 % topical ointment APPLY SPARINGLY TO AFFECTED AREA TWICE A DAY 01/04 completed Not Available Not Available Not Available ibuprofen 600 mg tablet Take 1 tablet 3 times a day by oral route. 03/03 completed Not Available Not Available Not Available methylpredn isolone 4 mg tablets in a dose pack Take as directed on package. 09/08 completed Not Available Not Available Not Available ondansetron 4 mg disintegrat ing tablet DISSOLVE 1 TABLET ON THE TONGUE EVERY 6 TO 8 HOURS FOR 5 DAYS NEEDED active Not Available Not Available No t Available fluticasone propionate 50 mcg/actuati on nasal spray,suspe nsion Wyalusing 2 sprays every day by intranasa l route in the evening. 2022 active Not Available Not Available Not Avai lable sertraline 50 mg tablet Take 1/2 tablet by mouth once daily for 1 week, then increase to 1 tablet by mouth daily. active Not Available Not Available No t Available dextroamphe tamine-amph etamine 5 mg tablet TAKE 1 TABLET BY MOUTH ONCE DAILY NEEDED IN THE AFTERNOON 10/28 completed Not Available Not Available Not Available naproxen 500 mg tablet TAKE 1 TABLET BY MOUTH TWICE DAILY NEEDED FOR PAIN 03/17 completed Not Available Not Available Not Available amoxicillin 500 mg-potassiu m clavulanate 125 mg tablet Take 1 tablet every 12 hours by oral route for 10 days. 12/27 completed Not Available Not Available Not Available dextroamphe tamine-amph etamine ER 15 mg 24hr capsule,ext end release Take 1 capsule every day by oral route. 12/19 completed Not Available Not Available Not Available dextroamphe tamine-amph etamine ER 25 mg 24hr capsule,ext end release TAKE 1 CAPSULE BY MOUTH ONCE DAILY FOR 30 DAYS active Not Available Not Available No t Available escitalopra m 10 mg tablet TAKE 1 TABLET BY MOUTH ONCE DAILY active Not Available Not Available No t Available cyclobenzap rine 5 mg tablet Take 1 tablet 3 times a day by oral route as needed. active Not Available Not Available No t Available clonazepam 0.5 mg disintegrat ing tablet Place 1 tablet twice a day by transling ual route as needed. active Not Available Not Available No t Available bupropion HCl XL 150 mg 24 hr tablet, extended release Take 1 tablet every day by oral route. active ADD Not Available Not Available No t Available nitrofurant oin monohydrate /macrocryst als 100 mg capsule Take 1 capsule every 12 hours by oral route for 7 days. 04/11 completed Not Available Not Available Not Available levocetiriz ine 5 mg tablet Take 1 tablet every day by oral route. 2022 active Not Available Not Available Not Avai lable Xyzal 04/21 completed Not Available Not Available [...] MOUTH ONCE DAILY FOR 90 DAYS active Not Available Not Available No t Available ID NOW COVID-19 Test Kit TEST [...] % 74 /min 16 /min 98 [degF] 84313.3 1 g 122 mm[Hg] 82 mm[Hg] Not Available [facility] 3 06:40:39 Date Recorded Body mass index (BMI) Body height Oxygen saturation Oxygen saturation in Arterial blood by Pulse oximetry Heart rate Body temperature Body weight Systolic blood pressure Diastolic blood pressure Provider Name and Address Organization Details Last Updated DateTime 2 22.5 kg/m2 156.21 cm 99 % 99 % 78 /min 97.5 [degF] 18978.3 8 g 112 mm[Hg] 78 mm[Hg] Not Available [facility] 3 06:40:39 Date Recorded Body mass index (BMI) Body height Oxygen saturation Oxygen saturation in Arterial blood by Pulse oximetry Heart rate Body temperature Body weight Systolic blood pressure Diastolic blood pressure Provider Name and Address Organization Details Last Updated DateTime 2 22.3 kg/m2 156.21 cm 99 % 99 % 84 /min 97.9 [degF] 10354.0 8 g 122 mm[Hg] 80 mm[Hg] Not Available [facility] 3 06:40:39 Date Recorded Body height Body mass index (BMI) Body weight Body temperature Heart rate Respiratory rate Oxygen saturation Oxygen saturation in Arterial blood by Pulse oximetry Pain severity - 0-10 verbal numeric rating [Score] - Reported Systolic blood pressure Diastolic blood pressure Provider Name and Address Organization Details Last Updated DateTime 3 156.21 cm 24.6 kg/m2 93027.2 9 g 96.8 [degF] 80 /min 16 /min 98 % 98 % 0 110 mm[Hg] 80 mm[Hg] Kat Marlow RN [facility] [employer] 3 16:28:23 Date Recorded Body height Body mass index (BMI) Body weight Body temperature Heart rate Respiratory rate Systolic blood pressure Diastolic blood pressure Provider Name and Address Organization Details Last Updated DateTime 3 156.21 cm 24.2 kg/m2 84647.3 6 g 97.5 [degF] 85 /min 16 /min 118 mm[Hg] 70 mm[Hg] Umair Borrego [facility] [employer] [facility] 3 10:53:55 Date Recorded Oxygen saturation Oxygen saturation in Arterial blood by Pulse oximetry Provider Name and Address Organization Details Last Updated DateTime 01/13/2023 98 % 98 % Chino Carmichael MD [facility] [address] [address], [place], [address], [facility] [employer] [facility] 01/13/2023 10:55:08 Social History Question Answer Notes LastModified by Organizat ion Details LastModified Time Tobacco Smoking Status Never Smoker Not Available [facility] 07/14/2022 06:39:10 Do You Have An Advance Directive? No [id number] Information not available 07/14/2022 What Is Your Level Of Alcohol Consumption? Occasional MIGRATION.23181 [id number] Information not available 07/14/2022 Is Blood Transfusion Acceptable In An Emergency? Yes Information not available 01/04/2023 What Is Your Level Of Caffeine Consumption? Occasional MIGRATION.88327 03385 Information not available 07/14/2022 How Much Tobacco Do You Chew? None MIGRATION.16342 [id number] Information not available 07/14/2022 What Is Your Code Status? Full Code Information not available 01/04/2023 In The 14 Days Before Symptom Onset, Have You Had Close Contact With A Laboratory-confi rmed COVID-19 While That Case Was Ill? No MIGRATION.42256 [id number] Information not available 07/14/2022 In The 14 Days Before Symptom Onset, Have You Had Close Contact With A Person Who Is Under Investigation For COVID-19 While That Person Was Ill? No MIGRATION.15327 87910 Information not available 07/14/2022 What Type Of Diet Are You Following? REGULAR MIGRATION.68517 20370 Information not available 07/14/2022 Do You Or Have You Ever Used E-cigarettes Or Vape? 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 4 Information not available 01/04/2023 Have There Been Any Changes To Your Family Or Social Situation? No Information not available 01/04/2023 Do You Use Insect Repellent Routinely? Yes MIGRATION.62215 [id number] Information not available 07/14/2022 Where Do You Live? SingleLevelHouse Information not available 01/04/2023 Do You Have A Medical Power Of Warehouse Director? No MIGRATION.85077 54550 Information not available 07/14/2022 What Was The Date Of Your Most Recent Tobacco Screening? 04/02/2022 MIGRATION.05201 85374 Information not available 07/14/2022 How Many Children Do You Have? 0 Information not available 01/04/2023 Have You Ever Been Counseled For Unhealthy Alcohol Use? No MIGRATION.38610 94800 Information not available 07/14/2022 Do You Have Any Pets? Yes Information not available 01/04/2023 What Is Your Relationship Status? Information not available 01/04/2023 Do You Use Your Seat Belt Or Car Seat Routinely? Yes MIGRATION.52648 13925 Information not available 07/14/2022 Do You Have Smoke And Carbon Monoxide Detectors In Your Home? Yes MIGRATION.71093 07546 Information not available 07/14/2022 Are You Passively Exposed To Smoke? No MIGRATION.26740 70625 Information not available 07/14/2022 Do You Or Have You Ever Used Smokeless Tobacco? Never Used Smokeless Tobacco MIGRATION.57464 67094 Information not available 07/14/2022 Are There Any Smokers In Your House? No MIGRATION.92931 86737 Information not available 07/14/2022 How Much Tobacco Do You Smoke? No MIGRATION.46458 63427 Information not available 07/14/2022 Do You Participate In Social Media? Yes Information not available 01/04/2023 What Types Of Sporting Activities Do You Participate In? Coaches Gymnastics Information n ot available 01/04/2023 Do You Feel Stressed (tense, Restless, Nervous, Or Anxious, Or Unable To Sleep At Night)? [id number] Information not available 01/04/2023 Do You Use Any Illicit Or Recreational Drugs? No MIGRATION.43725 17459 Information not available 07/14/2022 Do You Use Sunscreen Routinely? Yes MIGRATION.60677 47477 Information not available 07/14/2022 Has Tobacco Cessation Counseling Been Provided? No MIGRATION.58910 90189 Information not available 07/14/2022 Have You Recently Traveled Abroad? No MIGRATION.09445 40308 Information not available 07/14/2022 Do You Have Any Dietary Restrictions? No MIGRATION.73612 41406 Information not available 07/14/2022 Do You Or Have You Ever Used Any Other Forms Of Tobacco Or Nicotine? No MIGRATION.60631 38658 Information not available 07/14/2022 Sex: Unknown Functional Status Question Answer Note LastModified by Organizat ion Details LastModified Time What is your exercise level? Moderate [id number] Information not available 07/14/2022 Mental Status None recorded. Family History Relationship Description Onset Age of this Age Resolved Age Notes LastModified by Organization Details LastModified Time Mother No current problems or disability [id number] Not available 07/14/2022 06:39:31 Father Hypertensive disorder [id number] [id number] Not available 07/14/2022 06:39:31 Sister of unknown cause 25 MIGRATION.918 [id number] Not available 07/14/2022 06:39:32 Medical History Condition Response BLINDNESS N RHEUMATIC FEVER N KIDNEY STONES N BLADDER PROBLEMS N MRSA N OTHER # 1 N POLIO N LUNG DISEASE/DISORDER N RADIATION / CHEMOTHERAPY N COPD N Other # 2 N BLOOD DISEASES N SURGERY N EAR OR HEARING PROBLEMS N MUMPS N FEMALE PROBLEMS / INFECTIONS N BOWEL PROBLEMS N DEPRESSION (INCLUDING POST ) N STROKE/TIA N THYROID DISEASE N ULCERS [...] N CHRONIC PAIN SYNDROME N HYPOTHYROIDISM N CONSTIPATION N CAROTID BLOCKAGE N BACK / NECK PROBLEMS N HAVE YOU BEEN HOSPITALIZED OR SEEN IN [facility] IN THE PAST YEAR ? N [...] N PULMONARY EMBOLISM N AUTOIMMUNE DISEASE N Gynecological History Statement/Question Response Date of Last Mammogram 05/16/2009 Frequency of Cycle (Q days) 30 Date of LMP 03/22/2022 Menses Monthly Y Date of Last Pap Duration of Flow (days) 5 Current Control Method None Obstetrics History GPAL:G 1 P 0 0 0 0 Immunizations Vaccine Type Date Status Note Provider Nam e and Address Organization Details Recorded Time Tdap 04/15/2019 completed Not Available [facility] 07/14/2022 06:51:42 Past Encounters Encounter ID Performer Location Encounter Start Date Encounter Closed Date Diagnosis/Indication Diagnosis SNOMED-CT Code Diagnosis ICD10 Code Diagnosis Note [id number] [address] [address] 08/20/2020 00:00:00 08/20/2020 12:44:04 [id number] _ATHENA_M IGRATION_ DEFAULT_1 _1 , 10/28/2020 00:00:00 10/28/2020 17:38:26 [id number] _ATHENA_M IGRATION_ DEFAULT_1 _1 , 03/17/2021 00:00:00 03/17/2021 12:21:[id number] [address] 04/07/2021 00:00:00 04/07/2021 18:11:[id number] [address] 04/16/2021 00:00:00 04/16/2021 10:20:[id number] [address] 08/21/2021 00:00:00 08/21/2021 12:21:03 [id number] _NATHAN_M IGRATION_ DEFAULT_1 _1 , 09/08/2021 00:00:00 09/08/2021 10:01:07 [id number] _PRUDENCEENA_M IGRATION_ DEFAULT_1 _1 , 04/02/2022 00:00:00 04/02/2022 11:14:[id number] [address] 04/21/2022 00:00:00 04/21/2022 11:45:01 [id number] Chino Carmichael MD [address] [address] 01/04/2023 16:15:36 01/04/2023 17:15:06 Allergic rhinitis 65935330 J30.9 Nasal congestion 1083802 0 R09.81 Gastroesop hageal reflux disease without esophagitis 446954582 K21.9 Nausea and vomiting 1693 2000 R11.2 [id number] Chino Carmichael MD [address] [address] 01/13/2023 10:47:40 01/13/2023 11:11:12 Allergic conjunctivitis of bilateral eyes 0462899857 84835 H10.13 Pain of bi lateral eyes 3320549128 65697 H57.13 Sensation of irritation of eye proper 884503367 H57.89 Photophobia 427814581 H5 3.149 Health Concerns Section Related Observation LastModified by Organization Detai ls LastModified Time None Recorded Concern Status LastModified by Organization Details LastModified Time None Recorded Advance Directives Directive N: Payers Encounter Date Sequence Insurance Name Policy Number Policy Guevara Covered Member ID Guevara Member ID Guarantor Name 01/04/2023 1 [place] [id number] Jeb Bobo [id number] 09 [id number] Kaye Bobo 01/13/2023 1 [place] [id number] Jeb Bobo [id number] Kaye A Jihan Notes Date Note Type Note Provider Name and Address Organization Details Recorded Time 01/04/2023 text/html ACV: C/o chronic allergies that got bad for last week. Pt is leaving for a trip to [place] and wants to get better for it. Pt has contacted an shield installer, but can not see them until 04/07. Denies any sick contact. C/o chronic gerd and heart burn and its not controlled with otc meds. Nausea and vomiting ++, denies any BM issues/blood in stool. Denies any urinary symptoms/fever/chi lls. Denies any chance of . Chino Carmichael MD [address] [facility], [place] [address], [place], [address], [employer] 01/04/2023 17:07:18 01/13/2023 text/html ACV: C/o b/l eye irritation, watering, discharge, photophobia for last 8 days. Pt was on a beach 1.5 weeks ago and since than, she got these symptoms. Pt's child was sick and had pink eye too. Pt was seen at last weekend and got antibiotic drops and its not helping her. Pt is not able to see her Eye doctor yet. Chronic congestion ++. No other concern. Pt is requesting a work note off for today. Chino Carmichael MD [address], [place] [address], [place], [address], [employer] 01/13/2023 11:09:17 OBGyn Episode No OBEpisode recorded.
--- OUTSIDE RECORDS SUMMARY | 2024-07-25 07:44 | XMS_ITS ---
Author Organization [facility] Address [address] [place] [address] Care Team Providers Care Mortgage Servicing Specialist Name Role Phone Daniele Boswell Unavailable [phone] ZZ-Jordin, Provider Unavailable Unavailab le Allergies Allergen (clinical drug ingredient) Drug/Non Drug Allergy documented on EMR Reaction Allergy Type Onset Date Status codeine Codeine Unknown Drug Allergy Active REASON FOR VISIT [facility] Conversion Encounter Medications Medication SIG (Take, Route, Frequency, Duration) Notes Start Date End Date Status Fluticasone Propionate 50 MCG/ACT 2 spray(s) in each nostril BID for 30 day(s) Active Adderall 20 MG 1 tab(s) orally ONCE daily also 10 MG additional Active Encounters Encounter Location Date Provider Diagnosis [facility] [address] [place] [address] 10/29/2023 Provider Marina Chronic rhinitis J31.0 Assessments Encounter Date Diagnosis (ICD Code) Assessment Notes Treatment Notes Treatment Clinical Notes Section Notes 10/29/2023 Chronic rhinitis (ICD-10 - J31.0) Plan Of Treatment Medication Medication Name Sig Start Date Stop Date Notes Fluticasone Propionate 50 MCG/ACT 2 spray(s) in each nostril BID for 30 day(s) Progress Notes * Kaye WATTS ADOB: [birth year] (39 yo F)Acc No.[id number]:10/29/2023 Patient: Kaye SALINAS Provider: Margarita Brenner :1985 A ge:38 Y S ex:Female Date:10/29/2023 Address:[address] [place] [address] [address] [place], [id number] Subjective: * Chief Complaints: * 1 . Multum To Medispan Conversion Encounter. * Medical History: * Medications: T aking Adderall 20 MG Tablet 1 tab(s) orally ONCE daily , Notes to Pharmacist: also 10 MG additional * Allergies: C odeine. Objective: * Vitals: Assessment: * Assessment: 1. C hronic rhinitis - J31.0 (Primary) Plan: * Treatment: * Billing Information: * Visit Code: * Procedure Codes: * Electronic signature of Prov tracyjosephine ARREDONDO-Migration on 07/25/2024 at 07:43 AM CDT Sign off status: Pending * Provider: Margarita Brenner Date: 0 10/29/2023 Generated for Frank phillips/Shameka/Vani on: 0 07/25/2024 07:43 AM CDT
--- OUTSIDE RECORDS SUMMARY | 2024-07-25 07:44 | XMS_ITS | Clinical Summary ---
Author Organization [facility] Address [address] [place] [address] Care Team Providers Care Pairer Substandard Name Role Phone Kat Banks PATROL GUARD Primary Care Provider + Allergies Active Allergy Reactions Criticality Noted Date Comments Codeine Itching Low 03/10/2020 Medications dextroamphetami ne-amphetamine (ADDERALL) 20 mg tablet dextroamphet amine-amphet amine 20 mg tablet Active ibuprofen (ibuprofen) 200 mg tab/cap Take by mouth every 6 (six) hours as needed for pain Active levocetirizine (XYZAL) 5 mg tablet Take 5 mg by mouth every evening Active Active Problems Problem Noted Date Diagnosed Date Quadriceps strain, right, subsequent encounter 1 Surgical History Surgery Date Site/Laterality Comments FOOT SURGERY FOOT FRACTURE SURGERY Medical History Medical History Date Comments Anemia ADHD (attention deficit hyperactivity disorder) Anxiety Heart murmur Heart valve disease Migraines Allergic rhinitis Family History Medical History Relation Name Comments Hypertension Father Gout Mother Clotting disorder Other Gout Other Heart disease Other Hypertension Other Alcohol abuse Sister Mental illness Sister Relation Name Status Comments Father Mother Other Sister Social History Tobacco Use Types Packs/Day Years Used Date Smoking Tobacco: Never Smokeless Tobacco: Never Alcohol Use Standard Drinks/Week Comments Yes 0 (1 standard drink = 0.6 oz pur e alcohol) Personal Safety Answer Date Recorded Getting School Help Needed Not on file 07/16 Comments Unknown Sex and Gender Information Value Date Recorded Sex Assigned at Not on file Legal Sex Female 1:01 PM CDT Gender Identity Female 02/10/2021 4:35 PM CDT Sexual Orientation Choose not to disclose 2020 4:35 PM CDT Obstetrics History Last Filed Vital Signs Vital Sign Reading Time Taken Comments Blood Pressure 125/85 03/10/2020 11:27 AM CDT Pulse 75 03/10/2020 11:27 AM CDT Temperature 37.1 C (98.7 F) 03/10/2020 11:27 AM CDT Respiratory Rate - - Oxygen Saturation - - Inhaled Oxygen Concentration - - Weight 54.4 kg (120 lb) 02/11/2021 9:12 AM CDT Height 157.5 cm (5' 2 ) 02/11/2021 9:12 AM CDT Body Mass Index 21.95 02/11/2021 9:12 AM CDT Plan of Treatment Not on file Insurance [employer] [place] [employer] [facility] Care Teams Pairer Substandard Relationship Specialty Start Date End Date Kat Banks NP [address] [place] [id number] PCP - General Nurse Practitioner 03/03/20
--- OUTSIDE RECORDS SUMMARY | 2024-07-25 07:44 | XMS_ITS ---
Author Organization [facility] Address [address] [place] [address] Care Team Providers Care Religion Professor Name Role Phone Daniele Boswell Stewart [phone] REASON FOR VISIT Skin testing Encounters Encounter Location Date Provider Diagnosis [facility] [address] [place] [address] 03/08/2023 Daniele Boswell Plan Of Treatment No Information Progress Notes * Kaye WATTS ADOB: [birth year] (39 yo F)Acc No.[id number]:03/08/2023 Skin Testing Patient: Kaye SALINAS Provider: Joaquin Boswell PA-C :1985 A ge:37 Y S ex:Female Date:03/08/2023 Address[address] [id number] Subjective: * Chief Complaints: * 1 . Skin testing. * Medical History: Objective: * Vitals: Assessment: Plan: * Treatment: * Billing Information: * Visit Code: * Procedure Codes: * Electronic signature of James Boswell PA-C on 07/25/2024 at 07:44 AM CDT Sign off status: Pending * Provider: Joaquin Boswell PA-C Date: 1 Generated for Printi ng/Faxing/eTransmitting on: 0 07/25/2024 07:44 AM CDT
--- OUTSIDE RECORDS SUMMARY | 2024-07-25 07:45 | XMS_ITS | Referral Summary ---
Author Organization [facility] Address [address] [place] [address] Care Team Providers Care Management Department Chair Name Role Phone Kat Banks CHUTE WORKER Primary Care Provider + Allergies Active Allergy [...] Date Quadriceps strain, right, subsequent encounter 1 Social History Tobacco Use Types Packs/Day Years [...] not to disclose 2020 4:35 PM CDT Last Filed Vital Signs Vital Sign Reading [...] Plan of Treatment Not on file Insurance [employer] [place] [facility] Care Teams Management Department Chair Relationship Specialty Start Date End Date Kat Banks NP [address] [facility] [place] [id number] PCP - General Nurse Practitioner 03/03/20
--- OUTSIDE RECORDS SUMMARY | 2024-07-25 07:45 | XMS_ITS ---
Author Organization [facility] Address [address] [place] [address] Care Team Providers Care Inspecting And Testing Lead Hand Name Role Phone Daniele Boswell Stewart [phone] Encounters Encounter Location Date Provider Diagnosis [facility] [address] [place] [address] 03/01/2023 Daniele Boswell Plan Of Treatment No Information Progress Notes * Kaye WATTS ADOB: [birth year] (39 yo F)Acc No.[id number]:03/01/2023 Skin Testing Patient: Kaye SLAINAS Provider: Joaquin Boswell PA-C :1985 A ge:37 Y S ex:Female Date:03/01/2023 Address[address] [id number] Subjective: * Chief Complaints: * * Medical History: Objective: * Vitals: Assessment: Plan: * Treatment: * Billing Information: * Visit Code: * Procedure Codes: * Electronic signature of James Boswell PA-C on 07/25/2024 at 07:45 AM CDT Sign off status: Pending * Provider: Joaquin Boswell PA-C Date: 1 Generated for Printi ng/Faxing/eTransmitting on: 0 07/25/2024 07:45 AM CDT
--- OUTSIDE RECORDS SUMMARY | 2024-07-25 07:45 | XMS_ITS | Patient Health Record ---
Author Organization [facility] Address [address] [place] [address] Care Team Providers Care Store Keeper Name Role Phone Daniele Boswell Unavailable [phone] Marina, Provider Unavailable Unavailab le Allergies Allergen (clinical drug ingredient) Drug/Non Drug Allergy documented on EMR Reaction Allergy Type Onset Date Status codeine Codeine Unknown Drug Allergy Active Reason For Referral No Information Medications Medication SIG (Take, Route, Frequency, Duration) Notes Start Date End Date Status FLUTICASONE NASAL 50 mcg/inh 2 spray(s) in each nostril BID for 30 day(s) Active ADDERALL 20 mg 1 tab(s) orally ONCE daily also 10 MG additional Active Fluticasone Propionate 50 MCG/ACT 2 spray(s) in each nostril BID for 30 day(s) Active Adderall 20 MG 1 tab(s) orally ONCE daily also 10 MG additional Active Social History Tobacco Use: Social History Observation Description Date Details (start date - stop date) Never Smoker NA - NA Smoking Smart Form: Question Answer Notes Are you a: never smoker Problems Problem Type SNOMED Code ICD Code Onset Dates Problem Status W/U Status Risk Notes Problem Chronic rhinitis (68967032) Chronic rhinitis (J31.0) Active confirmed Problem Toxic effect of venom (39764131) Toxic effect of venom of ants, accidental (unintentional) , initial encounter (T63.421A) Active confirmed Encounters Encounter Location Date Provider Diagnosis [facility] [address] [place] [address] 10/29/2023 Provider Marina Chronic rhinitis J31.0 Assessments Encounter Date Diagnosis (ICD Code) Assessment Notes Treatment Notes Treatment Clinical Notes Section Notes 10/29/2023 Chronic rhinitis (ICD-10 - J31.0) Plan Of Treatment No Information Insurance Providers Payer Name Payer Address Payer Phone Subscriber Number Group Number Insured Name Patient Relationship to Insured Coverage Start Date Coverage End Date [facility] [id number] [place] [address] [phone] [id number] Kaye Bobo Self - patient is the insured [employer] [address] [place] [phone] [id number] Kaye Bobo Self - patient is the insured Medical (General) History Medical History History ICD Code Depression ADHD Surgical History Surgery Date(Month/Year)
== END 2024-07-25 07:41 | disposition home or self-care (01) ==
PROVIDERS: PCP Nurse Practitioner Family; Visit Provider Nurse Practitioner Family
DX: R11.2 Nausea with vomiting, unspecified (principal)
CPT/HCPCS: 78264; A9541

== ENCOUNTER 2024-08-16 01:59 | Day surgery (SDC) | payer BC, SELFPAY ==
[2024-08-06 13:18] VITALS: BMI 22.9
--- OUTSIDE RECORDS SUMMARY | 2024-08-16 02:02 | XMS_ITS | Patient Health Record ---
Author Organization [facility] Address [address] [place] [address] Care Team Providers Care Hang Gliding Instructor Name Role Phone Daniele Boswell Unavailable [phone] Marina, Provider Unavailable Unavailab le Allergies Allergen [...] W/U Status Risk Notes Problem Chronic rhinitis (08673158) Chronic rhinitis (J31.0) Active confirmed Problem Toxic effect of venom (56748866) Toxic effect of venom of ants, accidental (unintentional) , initial encounter (T63.421A) Active confirmed Encounters Encounter Location Date Provider Diagnosis [facility] [address] [place] [address] 10/29/2023 Provider Marina Chronic rhinitis J31.0 Assessments Encounter Date Diagnosis (ICD Code) Assessment Notes Treatment Notes Treatment Clinical Notes Section Notes 10/29/2023 Chronic rhinitis (ICD-10 - J31.0) Plan Of Treatment No Information Insurance Providers Payer Name Payer Address Payer Phone Subscriber Number Group Number Insured Name Patient Relationship to Insured Coverage Start Date Coverage End Date [facility] [address] [place] [address] [phone] [id number] Kaye Bobo Self - patient is the insured [employer] [address] [place] [id number] Kaye Bobo Self - patient is the insured Medical (General) History Medical History History ICD Code Depression ADHD Surgical History Surgery Date(Month/Year)
--- OUTSIDE RECORDS SUMMARY | 2024-08-16 02:02 | XMS_ITS ---
Author Organization [facility] Address [address] [address] Care Team Providers Care Inventory Control Planner Name Role Phone Daniele Boswell Stewart [phone] REASON FOR VISIT Skin testing Encounters Encounter Location Date Provider Diagnosis [facility] [address] [place] [address] 03/08/2023 Daniele Boswell Plan Of Treatment No Information Progress Notes * Kaye WATTS ADOB: [birth year] (39 yo F)Acc No.[id number]:03/08/2023 Skin Testing Patient: Kaye SALINAS Provider: Joaquin Boswell PA-C :1985 A ge:37 Y S ex:Female Date:03/08/2023 Address[address] [id number] Subjective: * Chief Complaints: * 1 . Skin testing. * Medical History: Objective: * Vitals: Assessment: Plan: * Treatment: * Billing Information: * Visit Code: * Procedure Codes: * Electronic signature of James Boswell PA-C on 08/16/2024 at 02:02 AM CDT Sign off status: Pending * Provider: Joaquin Boswell PA-C Date: 1 Generated for Printi ng/Faxing/eTransmitting on: 0 08/16/2024 02:02 AM CDT
--- OUTSIDE RECORDS SUMMARY | 2024-08-16 02:02 | XMS_ITS | Data Portability ---
Author Organization [place] - [facility], [facility]_ Family Practice Address [address] [place] [address] Care Team Providers Care Linen Attendant Name Role Phone DARIEN SANDERSON Primary Care Provider DARIEN SADNERSON Referring Provider [phone] SAYDA PAULSON Primary Care Provider [phone] DORON CAST Psychiatrist Assessment No assessment recorded. [...] Recorded Time Lesion of skin of face 429675013421 Active 2021 Not Available [facility] 3 19:01:15 Excessive cerumen in ear canal 006584196 Active 2016 Not Available [facility] 3 19:01:15 Pain of right elbow joint 7589607407382 9109 Active 2018 Not Available [facility] 3 19:01:15 Otalgia 38414702 Active 2016 Not Available [facility] 3 19:01:15 Otalgia 77191069 Active 2016 Not Available [facility] 3 19:01:15 Wrist joint pain 021160282 Active Not Available [facility] include [facility] beds at the [facility] 3 19:01:15 Anemia 614116943 Active Not Available Counts include 234 beds at the [facility] 3 19:01:15 Attention deficit hyperactiv ity disorder, predominan tly inattentiv e type 97646982 Active 2017 Not Available Counts include 234 beds at the [facility] 3 19:01:15 Sinusitis 98136051 Active Not Available Counts include 234 beds at the [facility] 3 19:01:16 Disorder of vitamin D 605183700 Active 2020 Not Available Counts include 234 beds at the [facility] 3 19:01:16 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 Not Available Counts include 234 beds at the [facility] 3 19:01:16 Attention deficit hyperactiv ity disorder 948138920 Active 2016 Not Available [facility] include 234 beds at the [facility] 3 19:01:16 Cellulitis of upper limb 621425506 Active Not Available Counts include 234 beds at the [facility] 3 19:01:16 Anxiety 07769038 Active Not Available Counts include 234 beds at the [facility] 3 19:01:16 Influenza 1779164 Active Not Available Counts include 234 beds at the [facility] 3 19:01:16 Otitis media 65442793 Active 2016 Not Available Counts include 234 beds at the [facility] 3 19:01:16 Otitis media 09455569 Active 2016 Not Available [facility] include 234 beds at the [facility] 3 19:01:16 Acid reflux 092236422 Active 2019 Not Available [facility] include 234 beds at the [facility] 3 19:01:16 Problem Notes None recorded. Procedures Surgical History Date Name Laterality Status Provider Name and Address Organization Details Recorded Time excision of cyst of ovary completed Not Available [facility] include 234 beds at the [facility] 05/23/2022 18:59:45 Tonsillectomy completed Not Available [facility] 05/23/2022 18:59:45 Foot Surgery completed Not Available [facility] 05/23/2022 18:59:45 Imaging Results None recorded. Procedure Notes None recorded. Medical Equipment None Reported. Allergies Allergen ID Allergen Name Allergen Category Reaction Reaction Severity Criticality Documentation Date Start Date Code Code System Note Provider Name and Address Organization Details Recorded Time 631004 codeine medicatio n itching Not available Not available 05/23/2022 2670 RxNorm nause a Not Available [facility] include 234 beds at the [facility] 3 19:02:45 Medications Name Sig Start Date [...] propionate 50 mcg/actuat ion nasal spray,susp ension [place] 2 sprays every day by intranas al [...] % 98 % 80 /min 98.2 [degF] 55732.5 3 g 122 mm[Hg] 82 mm[Hg] Not Available [facility] include 234 beds at the [facility] 3 19:00:12 Date Recorded Body mass index (BMI) Body height Oxygen saturation Oxygen saturation in Arterial blood by Pulse oximetry Heart rate Respiratory rate Body temperature Body weight Systolic blood pressure Diastolic blood pressure Provider Name and Address Organization Details Last Updated DateTime 2 21.7 kg/m2 156.21 cm 98 % 98 % 74 /min 16 /min 98 [degF] 76126.3 1 g 122 mm[Hg] 82 mm[Hg] Not Available [facility] include 234 beds at the [facility] 3 19:00:12 Date Recorded Body mass index (BMI) Body height Oxygen saturation Oxygen saturation in Arterial blood by Pulse oximetry Heart rate Body temperature Body weight Systolic blood pressure Diastolic blood pressure Provider Name and Address Organization Details Last Updated DateTime 2 22.5 kg/m2 156.21 cm 99 % 99 % 78 /min 97.5 [degF] 27760.3 8 g 112 mm[Hg] 78 mm[Hg] Not Available Counts include 234 beds at the [facility] 3 19:00:12 Date Recorded Body mass index (BMI) Body height Oxygen saturation Oxygen saturation in Arterial blood by Pulse oximetry Heart rate Body temperature Body weight Systolic blood pressure Diastolic blood pressure Provider Name and Address Organization Details Last Updated DateTime 2 22.3 kg/m2 156.21 cm 99 % 99 % 84 /min 97.9 [degF] 42151.0 8 g 122 mm[Hg] 80 mm[Hg] Not Available Counts include 234 beds at the [facility] 3 19:00:12 Date Recorded Body height Body mass index (BMI) Body weight Body temperature Heart rate Oxygen saturation Oxygen saturation in Arterial blood by Pulse oximetry Systolic blood pressure Diastolic blood pressure Provider Name and Address Organization Details Last Updated DateTime 3 156.21 cm 25.3 kg/m2 99297.5 6 g 97.6 [degF] 76 /min 98 % 98 % 116 mm[Hg] 78 mm[Hg] [facility] 3 09:15:11 Social History Question Answer Notes LastModified by Organizat ion Details LastModified Time Tobacco Smoking Status Never Smoker Not Available [facility] include 234 beds at the [facility] 05/23/2022 18:59:32 Do You Have An Advance Directive? No MIGRATION.[id number] 7090 Information not available 05/23/2022 What Is Your Level Of Alcohol Consumption? Occasional MIGRATION.831390 9203 Information not available 05/23/2022 What Is Your Level Of Caffeine Consumption? Occasional MIGRATION.382027 4624 Information not available 05/23/2022 How Much Tobacco Do You Chew? None MIGRATION.884993 7223 Information not available 05/23/2022 In The 14 Days Before Symptom Onset, Have You Had Close Contact With A Laboratory-confir med COVID-19 While That Case Was Ill? No MIGRATION.917877 7255 Information not available 05/23/2022 In The 14 Days Before Symptom Onset, Have You Had Close Contact With A Person Who Is Under Investigation For COVID-19 While That Person Was Ill? No MIGRATION.421435 8721 Information not available 05/23/2022 Are You Currently Employed? Yes MIGRATION.530112 4408 Information not available 05/23/2022 What Type Of Diet Are You Following? REGULAR MIGRATION.324706 1159 Information not available 05/23/2022 Do You Or Have You Ever Used E-cigarettes Or Vape? 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 Yes MIGRATION.095993 0144 Information not available 05/23/2022 Are You In An Abusive/frighteni ng Relationship? No MIGRATION.900003 3008 Information not available 05/23/2022 Do You Feel Safe At Home Yes MIGRATION.063144 0721 Information not available 05/23/2022 Do You Have A Medical Power Of Permastone Mechanic? No MIGRATION.565240 0412 Information not available 05/23/2022 What Was The Date Of Your Most Recent Tobacco Screening? 04/27/2023 [email or web address] Information not available 04/27/2023 Have You Ever Been Counseled For Unhealthy Alcohol Use? No MIGRATION.632943 3840 Information not available 05/23/2022 Do You Use Your Seat Belt Or Car Seat Routinely? Yes MIGRATION.786248 6393 Information not available 05/23/2022 Do You Have Smoke And Carbon Monoxide Detectors In Your Home? Yes MIGRATION.102912 8149 Information not available 05/23/2022 Are You Passively Exposed To Smoke? No MIGRATION.013385 5907 Information not available 05/23/2022 Do You Or Have You Ever Used Smokeless Tobacco? Never Used Smokeless Tobacco MIGRATION.211742 3292 Information not available 05/23/2022 Are There Any Smokers In Your House? No MIGRATION.539119 3720 Information not available 05/23/2022 How Much Tobacco Do You Smoke? No MIGRATION.308632 7294 Information not available 05/23/2022 Do You Use Any Illicit Or Recreational Drugs? No MIGRATION.977286 9139 Information not available 05/23/2022 Do You Use Sunscreen Routinely? Yes MIGRATION.656590 9785 Information not available 05/23/2022 Has Tobacco Cessation Counseling Been Provided? No MIGRATION.856037 2562 Information not available 05/23/2022 Have You Recently Traveled Abroad? No MIGRATION.506922 9158 Information not available 05/23/2022 Do You Have Any Dietary Restrictions? No MIGRATION.810082 0661 Information not available 05/23/2022 Do You Or Have You Ever Used Any Other Forms Of Tobacco Or Nicotine? No MIGRATION.909495 3800 Information not available 05/23/2022 Sex: Unknown Functional Status Question Answer Note LastModified by Organizat ion Details LastModified Time What is your exercise level? Moderate [id number].[id number] 0 Information not available 05/23/2022 Mental Status None recorded. Family History Relationship Description Onset Age of this Age Resolved Age Notes LastModified by Organization Details LastModified Time Mother No current problems or disability MIGRATION.[id number] Not available 05/23/2022 18:59:45 Father Hypertensive disorder MIGRATION.333 [id number] Not available 05/23/2022 18:59:45 Sister of unknown cause 25 MIGRATION.303 [id number] Not available 05/23/2022 18:59:45 Medical History Condition [...] HAVE YOU BEEN HOSPITALIZED OR SEEN IN [facility] IN THE PAST YEAR ? N [...] Recorded Time Tdap 04/15/2019 completed Not Available [facility] 05/23/2022 19:02:34 Past Encounters Encounter ID Performer Location Encounter Start Date Encounter Closed Date Diagnosis/Indication Diagnosis SNOMED-CT Code Diagnosis ICD10 Code Diagnosis Note [id number] _ATHENA_M IGRATION_ DEFAULT_1 _4 , 08/20/2020 00:00:00 08/20/2020 12:44:04 [id number] [facility] [address] [address] 10/28/2020 00:00:00 10/28/2020 17:38:26 [id number] [facility] [address] [address] 03/17/2021 00:00:00 03/17/2021 12:21:50 [id number] _ATHENA_M IGRATION_ DEFAULT_1 _4 , 04/07/2021 00:00:00 04/07/2021 18:11:56 [id number] _ATHENA_M IGRATION_ DEFAULT_1 _4 , 04/16/2021 00:00:00 04/16/2021 10:20:25 [id number] _ATHENA_M IGRATION_ DEFAULT_1 _4 , 08/21/2021 00:00:00 08/21/2021 12:21:03 [id number] [facility] [address] [address] 09/08/2021 00:00:00 09/08/2021 10:01:07 [id number] [facility] [place] [address] [place] [address] 04/02/2022 00:00:00 04/02/2022 11:14:12 [id number] _BRIAN IGRATION_ DEFAULT_1 _4 , 04/21/2022 00:00:00 04/21/2022 11:45:01 [id number] Sayda Paulson NP [facility] [address] [place] [address] 10/14/2022 09:05:12 10/14/2022 09:27:02 Attention deficit hyperactivity disorder [id number] F90.9 Will continue current medication s. Patient [...] ID Guarantor Name 10/14/2022 1 [place] [id number] Jeb Bobo [id number] Kaye Bobo Notes Date Note Type Note Provider Name and Address Organization Details Recorded Time 10/14/2022 text/html Pt presents for f/u ADHD medications.who is rx vraylar? seeing Psychiatry When do you take meds:Everyday: yesMedication effects: noneDoing fine with work:Side effects: deniesAppetite: doing wellRegular routine: yesSleep: good sleepDenies SI/HI, CP, SOB, palpitations. Sayda Paulson NP [address] [place], [address], [facility] 10/14/2022 09:52:40 OBGyn Episode No OBEpisode recorded.
--- OUTSIDE RECORDS SUMMARY | 2024-08-16 02:03 | XMS_ITS | Data Portability ---
Author Organization [place] - [facility] [place], Main Office Address [address] [place] [address] Care Team Providers Care Circuit Breaker Assembler Name Role Phone KAT SANDERSON Primary Care Provider KAT SANDERSON Referring Provider [phone] Assessment Encounter Date Assessment Date Assessment LastModified [...] ED if any concerns. F/u as directed. [email or web address] Not available 01/04/2023 17:06:11 01/13/2023 01/13/2023 D/w [...] days if any concerns. F/u as directed. [email or web address] Not available 01/13/2023 11:08:57 Plan of Treatment Reminders Order Date Submit Date Provider Last Modified By Organization Details Last Modified Time Details Appointments None recorded. Lab None recorded. Referral None recorded. Procedures None recorded. Surgeries None recorded. Imaging None recorded. Medication Orders neomycin-po lymyxin-dex ameth 3.5 mg/mL-10,00 0 unit/mL-0.1 % eye drops 2022 023 [facility] [address] [facility], [place], [place], [id number], 3 11:01:13 Kenalog 40 mg/mL suspension for injection 2022 023 [email or web address] Not available 17:46:09 ondansetron 4 mg disintegrat ing tablet 2022 023 [facility] #78020, [address] [facility], [place], [place], [id number], 3 16:34:30 fluticasone propionate 50 mcg/actuati on nasal spray,suspe nsion 2022 023 [facility], [address] [facility], [place], [place], [id number], 3 16:32:57 montelukast 10 mg tablet 2022 023 [facility], [address] [facility], [place], [place], [id number], 3 16:32:57 levocetiriz ine 5 mg tablet 2022 023 [facility], [address] [facility], [place], [place], [id number], 3 16:32:56 famotidine 20 mg tablet 2022 023 [facility], [address] [facility], [place], [place], [id number], 3 16:33:20 Patient TargetsNo targets recorded. Patient InstructionsNo instructions recorded. Reason for Referral None Reported. Results Created Date Observation Date Name Description Value Unit Range Abnormal Flag Note LastModifiedBy Organization Detail LastModifiedTime Result Notes None recorded. Problems Name Problem SNOMED Code Status Onset Date Resolution Date Notes Provider Name and Address Organization Details Recorded Time Lesion of skin of face 981049015132 Active 2021 Not Available [facility] 3 06:45:03 Excessive cerumen in ear canal 639594511 Active 2016 Not Available [facility] 3 06:45:03 Pain of right elbow joint 2105807339856 9109 Active 2018 Not Available [facility] 3 06:45:03 Otalgia 43368073 Active 2016 Not Available [facility] 3 06:45:03 Otalgia 51131704 Active 2016 Not Available [facility] 3 06:45:04 Wrist joint pain 449521814 Active Not Available [facility] 3 06:45:04 Anemia 935096738 Active Not Available [facility] 3 06:45:04 Attention deficit hyperactiv ity disorder, predominan tly inattentiv e type 93953482 Active 2017 Not Available [facility] 3 06:45:04 Sinusitis 72690761 Active Not Available [facility] 3 06:45:04 Disorder of vitamin D 039900174 Active 2020 Not Available [facility] 3 06:45:04 Postconcus heather syndrome 51999725 Active 2019 Not Available [facility] 3 06:45:04 Attention deficit hyperactiv ity disorder 562760394 Active 2016 Not Available [facility] 3 06:45:04 Cellulitis of upper limb 473328693 Active Not Available [facility] 3 06:45:05 Anxiety 83591444 Active Not Available [facility] 3 06:45:05 Influenza 7139930 Active Not Available [facility] 3 06:45:05 Otitis media 87839976 Active 2016 Not Available [facility] 3 06:45:05 Otitis media 24328476 Active 2016 Not Available [facility] 3 06:45:05 Acid reflux 187794342 Active 2019 Not Available [facility] 3 06:45:05 Dysuria 71127200 Active 2022 Kat Sanderson NP [address], [place], [address] , [facility] [employer] [facility] 3 10:53:48 Allergic rhinitis 28240793 Active 2022 Chino Carmichael MD [address], [place], [address] , [facility] [employer] [facility] 3 16:30:25 Nasal congestion 17868986 Active 2022 Chino Carmichael MD [address], [place], [address] , [facility] [employer] [facility] 3 16:31:03 Gastroesop hageal reflux disease without esophagiti s 479664674 Active 2022 Chino Carmichael MD [address], [place], [address] , [facility] [employer] [facility] [employer] [facility] 3 16:33:02 Nausea and vomiting 27768009 Active 2022 Chino Carmichael MD [address], [place], [address] , [facility] [employer] [facility] 3 16:33:46 Allergic conjunctiv itis of bilateral eyes 0430857778237 02 Active 2022 Chino Carmichael MD [address], [place], [address] , [facility] [employer] [facility] 3 10:59:04 Pain of bilateral eyes 7191598652323 09 Active 2022 MD [address], [place], [address] , [facility] [employer] [facility] 3 11:07:36 Sensation of irritation of eye proper 941626634 Active 2022 MD [address], [place], [address] , [facility] 3 11:07:58 Photophobi a 223768928 Active 2022 Chino Carmichael MD [address], [facility] [address], [place], [address] , [facility] 3 11:08:11 Problem Notes None recorded. Procedures Surgical History Date Name Laterality Status Provider Name and Address Organization Details Recorded Time excision of cyst of ovary completed Not Available [facility] 07/14/2022 06:39:30 Tonsillectomy completed Not Available [facility] 06:39:30 Foot Surgery [facility] 06:39:30 Imaging Results None recorded. Procedure Notes None recorded. Medical Equipment None Reported. Allergies Allergen ID Allergen Name Allergen Category Reaction Reaction Severity Criticality Documentation Date Start Date Code Code System Note Provider Name and Address Organization Details Recorded Time 07426 codeine medicatio n itching Not available Not available 07/14/2022 2670 RxNorm nause a Not Available [facility] 3 06:52:04 Medications Name Sig Start Date [...] propionate 50 mcg/actuati on nasal spray,suspe nsion [place] 2 sprays every day by intranasa l [...] % 74 /min 16 /min 98 [degF] 89018.3 1 g 122 mm[Hg] 82 mm[Hg] Not Available [facility] 3 06:40:39 Date Recorded Body mass index (BMI) Body height Oxygen saturation Oxygen saturation in Arterial blood by Pulse oximetry Heart rate Body temperature Body weight Systolic blood pressure Diastolic blood pressure Provider Name and Address Organization Details Last Updated DateTime 2 22.5 kg/m2 156.21 cm 99 % 99 % 78 /min 97.5 [degF] 10754.3 8 g 112 mm[Hg] 78 mm[Hg] Not Available [facility] 3 06:40:39 Date Recorded Body mass index (BMI) Body height Oxygen saturation Oxygen saturation in Arterial blood by Pulse oximetry Heart rate Body temperature Body weight Systolic blood pressure Diastolic blood pressure Provider Name and Address Organization Details Last Updated DateTime 2 22.3 kg/m2 156.21 cm 99 % 99 % 84 /min 97.9 [degF] 93077.0 8 g 122 mm[Hg] 80 mm[Hg] Not Available [facility] 3 06:40:39 Date Recorded Body height Body mass index (BMI) Body weight Body temperature Heart rate Respiratory rate Oxygen saturation Oxygen saturation in Arterial blood by Pulse oximetry Pain severity - 0-10 verbal numeric rating [Score] - Reported Systolic blood pressure Diastolic blood pressure Provider Name and Address Organization Details Last Updated DateTime 3 156.21 cm 24.6 kg/m2 94307.2 9 g 96.8 [degF] 80 /min 16 /min 98 % 98 % 0 110 mm[Hg] 80 mm[Hg] Kat Marlow RN [facility] 3 16:28:23 Date Recorded Body height Body mass index (BMI) Body weight Body temperature Heart rate Respiratory rate Systolic blood pressure Diastolic blood pressure Provider Name and Address Organization Details Last Updated DateTime 3 156.21 cm 24.2 kg/m2 10200.3 6 g 97.5 [degF] 85 /min 16 /min 118 mm[Hg] 70 mm[Hg] Umair Borrego [facility] 3 10:53:55 Date Recorded Oxygen saturation Oxygen saturation in Arterial blood by Pulse oximetry Provider Name and Address Organization Details Last Updated DateTime 01/13/2023 98 % 98 % Chino Carmichael MD [facility] [address], [address] [address], [place], [address], [facility] [employer] [facility] 01/13/2023 10:55:08 Social History Question Answer Notes LastModified by Organizat ion Details LastModified Time Tobacco Smoking Status Never Smoker Not Available [facility] 07/14/2022 06:39:10 Do You Have An Advance Directive? No [id number] Information not available 07/14/2022 What Is Your Level Of Alcohol Consumption? Occasional MIGRATION.50137 35213 Information not available 07/14/2022 Is Blood Transfusion Acceptable In An Emergency? Yes Information not available 01/04/2023 What Is Your Level Of Caffeine Consumption? Occasional MIGRATION.15017 29571 Information not available 07/14/2022 How Much Tobacco Do You Chew? None MIGRATION.71072 47883 Information not available 07/14/2022 What Is Your Code Status? Full Code Information not available 01/04/2023 In The 14 Days Before Symptom Onset, Have You Had Close Contact With A Laboratory-confi rmed COVID-19 While That Case Was Ill? No MIGRATION.87381 81271 Information not available 07/14/2022 In The 14 Days Before Symptom Onset, Have You Had Close Contact With A Person Who Is Under Investigation For COVID-19 While That Person Was Ill? No MIGRATION.22124 93385 Information not available 07/14/2022 What Type Of Diet Are You Following? REGULAR MIGRATION.28860 18125 Information not available 07/14/2022 Do You Or Have You Ever Used E-cigarettes Or Vape? 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 4 Information not available 01/04/2023 Have There Been Any Changes To Your Family Or Social Situation? No Information not available 01/04/2023 Do You Use Insect Repellent Routinely? Yes MIGRATION.15906 09654 Information not available 07/14/2022 Where Do You Live? SingleLevelHouse Information not available 01/04/2023 Do You Have A Medical Power Of Property Maintenance Technician? No MIGRATION.84440 85789 Information not available 07/14/2022 What Was The Date Of Your Most Recent Tobacco Screening? 04/02/2022 MIGRATION.85215 22390 Information not available 07/14/2022 How Many Children Do You Have? 0 Information not available 01/04/2023 Have You Ever Been Counseled For Unhealthy Alcohol Use? No MIGRATION.89444 72674 Information not available 07/14/2022 Do You Have Any Pets? Yes Information not available 01/04/2023 What Is Your Relationship Status? Information not available 01/04/2023 Do You Use Your Seat Belt Or Car Seat Routinely? Yes MIGRATION.09992 50141 Information not available 07/14/2022 Do You Have Smoke And Carbon Monoxide Detectors In Your Home? Yes MIGRATION.79905 10036 Information not available 07/14/2022 Are You Passively Exposed To Smoke? No MIGRATION.76546 84657 Information not available 07/14/2022 Do You Or Have You Ever Used Smokeless Tobacco? Never Used Smokeless Tobacco MIGRATION.49831 25072 Information not available 07/14/2022 Are There Any Smokers In Your House? No MIGRATION.12695 03840 Information not available 07/14/2022 How Much Tobacco Do You Smoke? No MIGRATION.42210 16284 Information not available 07/14/2022 Do You Participate In Social Media? Yes Information not available 01/04/2023 What Types Of Sporting Activities Do You Participate In? Coaches Gymnastics Information n ot available 01/04/2023 Do You Feel Stressed (tense, Restless, Nervous, Or Anxious, Or Unable To Sleep At Night)? MW3404-9 Information not available 01/04/2023 Do You Use Any Illicit Or Recreational Drugs? No MIGRATION.73256 30585 Information not available 07/14/2022 Do You Use Sunscreen Routinely? Yes MIGRATION.63553 61234 Information not available 07/14/2022 Has Tobacco Cessation Counseling Been Provided? No MIGRATION.38857 08507 Information not available 07/14/2022 Have You Recently Traveled Abroad? No MIGRATION.88582 51451 Information not available 07/14/2022 Do You Have Any Dietary Restrictions? No MIGRATION.55869 88785 Information not available 07/14/2022 Do You Or Have You Ever Used Any Other Forms Of Tobacco Or Nicotine? No MIGRATION.64913 58284 Information not available 07/14/2022 Sex: Unknown Functional Status Question Answer Note LastModified by Organizat ion Details LastModified Time What is your exercise level? Moderate MIGRATION.[id number] 6 Information not available 07/14/2022 Mental Status None recorded. Family History Relationship Description Onset Age of this Age Resolved Age Notes LastModified by Organization Details LastModified Time Mother No current problems or disability MIGRATION.818 [id number] Not available 07/14/2022 06:39:31 Father Hypertensive disorder MIGRATION.172 1550100 Not available 07/14/2022 06:39:31 Sister of unknown cause 25 MIGRATION.714 [id number] Not available 07/14/2022 06:39:32 Medical History Condition Response BLINDNESS N RHEUMATIC FEVER N BLADDER PROBLEMS N KIDNEY STONES N MRSA N OTHER # 1 N POLIO N LUNG DISEASE/DISORDER N RADIATION / CHEMOTHERAPY N COPD N Other # 2 N BLOOD DISEASES N SURGERY N EAR OR HEARING PROBLEMS N MUMPS N BOWEL PROBLEMS N DEPRESSION (INCLUDING POST ) N FEMALE PROBLEMS / INFECTIONS N STROKE/TIA N THYROID DISEASE N ULCERS [...] HAVE YOU BEEN HOSPITALIZED OR SEEN IN [facility] IN THE PAST YEAR ? N ATHEROSCLEROSIS [...] Recorded Time Tdap 04/15/2019 completed Not Available [facility] 07/14/2022 06:51:42 Past Encounters Encounter ID Performer Location Encounter Start Date Encounter Closed Date Diagnosis/Indication Diagnosis SNOMED-CT Code Diagnosis ICD10 Code Diagnosis Note [id number] [address] [address] 08/20/2020 00:00:00 08/20/2020 12:44:04 [id number] _ATHENA_M IGRATION_ DEFAULT_1 _1 , 10/28/2020 00:00:00 10/28/2020 17:38:26 [id number] _ATHENA_M IGRATION_ DEFAULT_1 _1 , 03/17/2021 00:00:00 03/17/2021 12:21:[id number] [address] 04/07/2021 00:00:00 04/07/2021 18:11:[id number] [address] 04/16/2021 00:00:00 04/16/2021 10:20:[id number] [address] 08/21/2021 00:00:00 08/21/2021 12:21:03 [id number] _NATHAN_M IGRATION_ DEFAULT_1 _1 , 09/08/2021 00:00:00 09/08/2021 10:01:07 [id number] _PRUDENCEENA_M IGRATION_ DEFAULT_1 _1 , 04/02/2022 00:00:00 04/02/2022 11:14:[id number] [address] 04/21/2022 00:00:00 04/21/2022 11:45:01 [id number] Chino Carmichael MD [address] [address] 01/04/2023 16:15:36 01/04/2023 17:15:06 Allergic rhinitis 71707438 J30.9 Nasal congestion 9259583 0 R09.81 Gastroesop hageal reflux disease without esophagitis 903214637 K21.9 Nausea and vomiting 1693 2000 R11.2 [id number] Chino Carmichael MD [address] [address] 01/13/2023 10:47:40 01/13/2023 11:11:12 Allergic conjunctivitis of bilateral eyes 2491671247 50231 H10.13 Pain of bi lateral eyes 1838700742 59038 H57.13 Sensation of irritation of eye proper 207966793 H57.89 Photophobia 136010324 H5 3.149 Health Concerns Section Related Observation LastModified by Organization Detai ls LastModified Time None Recorded Concern Status LastModified by Organization Details LastModified Time None Recorded Advance Directives Directive N: Payers Encounter Date Sequence Insurance Name Policy Number Policy Guevara Covered Member ID Guevara Member ID Guarantor Name 01/04/2023 1 [place] [id number] Jeb Bobo [id number] Kaye Bobo 01/13/2023 1 [place] [id number] Jeb Bobo [id number] Kaye A Jihan Notes Date Note Type Note Provider Name and Address Organization Details Recorded Time 01/04/2023 text/html ACV: C/o chronic allergies that got bad for last week. Pt is leaving for a trip to [place] and wants to get better for it. Pt has contacted an systems integration analyst, but can not see them until 04/07. Denies any sick contact. C/o chronic gerd and heart burn and its not controlled with otc meds. Nausea and vomiting ++, denies any BM issues/blood in stool. Denies any urinary symptoms/fever/chi lls. Denies any chance of . Chino Carmichael MD [address] [facility], [address] [address], [place], [address], [employer] 01/04/2023 17:07:18 01/13/2023 text/html ACV: C/o b/l [...] off for today. Chino Carmichael MD [address], [address] [address], [place], [address], [employer] 01/13/2023 11:09:17 OBGyn Episode No OBEpisode recorded.
--- OUTSIDE RECORDS SUMMARY | 2024-08-16 02:03 | XMS_ITS | Clinical Summary ---
Author Organization [facility] Address [address] [place] [address] Care Team Providers Care Gear Tooth Lapping Machine Operator Name Role Phone Kat Banks RIPRAP PLACING SUPERVISOR Primary Care Provider + Allergies Active Allergy [...] Plan of Treatment Not on file Insurance [employer]ave [place] [facility] Care Teams Gear Tooth Lapping Machine Operator Relationship Specialty Start Date End Date Kat Banks NP PCP - General Nurse Practitioner 03/03/20
--- OUTSIDE RECORDS SUMMARY | 2024-08-16 02:03 | XMS_ITS | Referral Summary ---
Author Organization [facility] Address [address] [place] [address] Care Team Providers Care [employer] Name Role Phone Kat Banks DIRECTOR DIGITAL Primary Care Provider + Allergies Active Allergy [...] Plan of Treatment Not on file Insurance [facility] [facility] Care Teams [employer] Relationship Specialty Start Date End Date Kat Banks NP PCP - General Nurse Practitioner 03/03/20
--- OUTSIDE RECORDS SUMMARY | 2024-08-16 02:03 | XMS_ITS | Clinical Summary ---
Author Organization [facility] Address [address] [place] [address] Care Team Providers Care Marketing And Promotions Manager Name Role Phone Kat Banks [facility] Primary Care Provider + Allergies Active Allergy Reactions Criticality Noted Date Comments Acetaminophen Nausea and Vomiting 12/25/2018 Metallic taste Codeine Nausea and Vomiting 12/25/2018 Medications amphetamine-dext roamphetamine (ADDERALL) 10 MG tablet Take 1 tablet (10 mg total) by mouth daily. Active amphetamine-dext roamphetamine (ADDERALL) 20 MG tablet Take 1 tablet (20 mg total) by mouth daily. Active Family History Medical History Relation Comments Hypertension Father Diabetes Maternal Grandmother Relation Status Comments Father Maternal Grandmother Social History Tobacco Use Types Packs/Day Years Used Date Smoking Tobacco: Never Smokeless Tobacco: Never Alcohol Use Standard Drinks/Week Comments No 0 (1 standard drink = 0.6 oz pur e alcohol) AUDIT-C Answer Date Recorded Frequency of Alcohol Consumption Never 12/25/2018 Average Number of Drinks Not on file Frequency of Binge Drinking Not on file 12/14 Comments No Sex and Gender Information Value Date Recorded Sex Assigned at Not on file Legal Sex Female 7:32 AM CDT Gender Identity Not on file Sexual Orientation Not on file Last Filed Vital Signs Vital Sign Reading Time Taken Comments Blood Pressure 143/92 11/21/2023 8:08 PM CDT Pulse 70 11/21/2023 8:08 PM CDT Temperature 36.2 C (97.2 F) 11/21/2023 8:08 PM CDT Respiratory Rate 20 11/21/2023 8:08 PM CDT Oxygen Saturation 100% 11/21/2023 8:08 PM CDT Inhaled Oxygen Concentration - - Weight 58.1 kg (128 lb) 11/21/2023 5:32 PM CDT Height 157.5 cm (5' 2 ) 11/21/2023 5:32 PM CDT Body Mass Index 23.41 11/21/2023 5:32 PM CDT Plan of Treatment Health Maintenance Due Date Last Done Comments Cervical Cancer Screening Pa p Smear (Age 30 to 64) Every 3 Years 1986 Annual Physical 1989 Hepatitis C 2004 DTaP, Tdap and Td Vaccines ( 1 - Tdap) 2005 Hepatitis B Vaccines (1 of 3 - 19+ 3-dose series) 2005 Cervical Cancer Screening Pa p with HPV Testing (Age 30 to 64) Every 5 Years 2016 Cervical Cancer Screening with HPV 2016 COVID-19 Vaccine (2023-2 5 season) 2024 HPV Vaccines Aged Out No longer eligi ble based on patient's age to complete this topic Meningococcal B Vaccine Aged Out No l onger eligible based on patient's age to complete this topic Meningococcal Vaccine Aged Out No jorge viky eligible based on patient's age to complete this topic Pneumococcal Vaccine: Pediat rics (0 to 5 Years) and At-Risk Patients (6 to 64 Years) Aged Out No longer eligible b ased on patient's age to complete this topic RSV Immunizations Under 20 Months Aged Out No longer eligible based on patient's age to complete this topic Insurance Care Teams Marketing And Promotions Manager Relationship Specialty Start Date End Date Kat Banks, REVIVAL CLERK- [address] [place] [address] PCP - General NURSE PRACTITIONER 12/25/18
--- OUTSIDE RECORDS SUMMARY | 2024-08-16 02:03 | XMS_ITS ---
Author Organization [facility] Address [address] [place] [address] Care Team Providers Care Housing Assistant Name Role Phone Daniele Boswell Stewart [phone] Encounters Encounter Location Date Provider Diagnosis [facility] [address] [place] [address] 03/01/2023 Daniele Boswell Plan Of Treatment No Information Progress Notes * Kaye WATTS ADOB: [birth year] (39 yo F)Acc No.[id number]:03/01/2023 Skin Testing Patient: Kaye SALINAS Provider: Joaquin Boswell PA-C :1985 A ge:37 Y S ex:Female Date:03/01/2023 [address] [id number] Subjective: * Chief Complaints: * * Medical History: Objective: * Vitals: Assessment: Plan: * Treatment: * Billing Information: * Visit Code: * Procedure Codes: * Electronic signature of James Boswell PA-C on 08/16/2024 at 02:03 AM CDT Sign off status: Pending * Provider: Joaquin Boswell PA-C Date: 1 Generated for Printi ng/Faxing/eTransmitting on: 0 08/16/2024 02:03 AM CDT
--- OUTSIDE RECORDS SUMMARY | 2024-08-16 02:03 | XMS_ITS ---
Author Organization Health system Address [address] [place] [address] Care Team Providers Care Propeller Inspector Name Role Phone Daniele Boswell Unavailable [phone] ZZ-Jordin, Provider Unavailable Unavailab le Allergies Allergen (clinical drug ingredient) Drug/Non Drug Allergy documented on EMR Reaction Allergy Type Onset Date Status codeine Codeine Unknown Drug Allergy Active REASON FOR VISIT [facility] To [facility] Conversion Encounter Medications Medication SIG (Take, Route, Frequency, Duration) Notes Start Date End Date Status Fluticasone Propionate 50 MCG/ACT 2 spray(s) in each nostril BID for 30 day(s) Active Adderall 20 MG 1 tab(s) orally ONCE daily also 10 MG additional Active Encounters Encounter Location Date Provider Diagnosis Health system [address] [place] [address] 10/29/2023 Provider Marina Chronic rhinitis J31.0 Assessments Encounter Date Diagnosis (ICD Code) Assessment Notes Treatment Notes Treatment Clinical Notes Section Notes 10/29/2023 Chronic rhinitis (ICD-10 - J31.0) Plan Of Treatment Medication Medication Name Sig Start Date Stop Date Notes Fluticasone Propionate 50 MCG/ACT 2 spray(s) in each nostril BID for 30 day(s) Progress Notes * Kaye WATTS ADOB: [birth year] (39 yo F)Acc No.[id number]:10/29/2023 Patient: Kaye SALINAS Provider: Margarita Brenner :1985 A ge:38 Y S ex:Female Date:10/29/2023 Address:[address] [place] [address] [address], [id number] Subjective: * Chief Complaints: * 1 . [...] Procedure Codes: * Electronic signature of Prov rush ARREDONDO-Migration on 08/16/2024 at 02:02 AM CDT Sign off status: Pending * Provider: Margarita Brenner Date: 0 10/29/2023 Generated for Frank phillips/Shameka/Vani on: 0 08/16/2024 02:02 AM CDT
[2024-08-16 12:09] VITALS: BP 151/101; PULSE 80; RESP 18; TEMP 36.1; O2SAT 97; BMI 22.3
[2024-08-16 12:12] LABS: BEDSIDEPREGUCG Negative (Negative)
[2024-08-16] MEDS: LACTATED RINGERS 1,000 ML 150 ML IV CONT (12:16)
--- NOTE | 2024-08-16 12:23 | WPDANESEPPF ---
Anes - Initial Pre Proc Eval Procedure: Operation Date: 08/16/24 13:30 Proposed Procedures p Esophagogastroduodenoscopy & Colonoscopy - Davis Estrada MD Date/Time: 08/16/24 12:23 Surgeon: Davis Estrada MD Pre Op Diagnosis: GERD, Lower abdominal pain, Nausea with vomiting Patient Data Age: 39 Gender: F Height: 1.57 m Weight: 55.4 kg Last Vital Signs Temp 97 F L 08/16/24 12:09 Pulse 80 08/16/24 12:09 Resp 18 08/16/24 12:09 BP 151/101 H 08/16/24 12:09 Pulse Ox 97 08/16/24 12:09 O2 Del Method Room Air 08/16/24 12:09 Allergies Allergy/AdvReac Type Severity Reaction Status Date / Time codeine Allergy Mild Itching Verified 08/16/24 12:08 Home Medications ?Medication ?Instructions ?Recorded ?Confirmed ?Type famotidine 20 mg tablet 20 mg PO DAILY #90 tabs 09/13/23 08/16/24 Rx montelukast 10 mg tablet 10 mg PO DAILY 01/23/24 08/06/24 History ondansetron 4 mg disintegrating 4 mg PO Q8H PRN nausea and 07/13/24 08/06/24 Rx tablet vomiting #60 tabs omeprazole 40 mg capsule,delayed 40 mg PO DAILY #30 caps 07/16/24 08/16/24 Rx release dextroamphetamine-amphetamine 10 10 mg PO DAILY #30 tabs 08/14/24 08/16/24 Rx mg tablet dextroamphetamine-amphetamine 20 20 mg PO DAILY #30 tabs 08/14/24 08/16/24 Rx mg tablet Laboratory Tests 08/16/24 12:09 POC Urine HCG, Qual Negative (Negative) Patient hx anesthesia problems: none Family hx anesthesia problems: none Results Review: All pre-operative results and documents have been reviewed as part of the pre-operative evaluation. [facility] Past Medical History Medical History ADD (attention deficit disorder) Surgical History Surgical History History of tonsillectomy Family History Family History Father Hypertension Sibling Depression Heart disease Social History Social History Smoking status: Never smoker Alcohol intake: never Substance use: never Substance use type: does not use Do You Feel Safe in your Home?: Yes Lack of Transportation: No Lack of Food: Never True Current Housing: I Have Housing Concerned About Future Housing: No Difficulty Paying Gas/Electric Bills: No Difficulty Paying for Meds: No Currently Unemployed: No Education: Don't Know Difficulty w/ Childcare or Family Care: No Living arrangements: with family Additional living arrangements comments: Occupation/Education: occupation 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 Gender identity (if verbalized by the patient): Female Spiritual care concerns: No Agree to blood products: Yes Anes - Eval Final PreProcedure Day of Procedure 08/16/24 12:23 Patient weight: normal Heart: regular rate and rhythm Lungs: clear to auscultation Airway: Mallampati scale class II Neurological: alert and oriented Last oral intake: >/= 8 hours ASA classification: II Emergent: no Anesthetic plan: proceed Anesthesia type and monitoring: general GIVS and standard monitoring Results Review: All pre-operative results and documents have been reviewed as part of the pre-operative evaluation. Informed Consent: The patient's anesthetic plan and its attendant risks and benefits were discussed with the patient/family/POA. Questions were solicited and answers provided to the satisfaction of the patient/family/POA.
--- NOTE | 2024-08-16 12:38 | P.HP_ITS ---
H&P: [facility] History of Present Illness Date/Time: 08/16/24 12:38 Chief Complaint: Nausea -dyspepsia-diarrhea. Narrative: The patient has been complaining of intermittent nausea and epigastric fullness for several months. In addition, she had severe diarrhea for many months, associated with crampy lower abdominal pain occasionally relieved by defecation. She did some modifications in her diet including avoiding red meats and she has gotten much better. she is referred for EGD and colonoscopy. Review of Systems Review of Systems: All systems reviewed & are unremarkable except as noted in HPI and below PMFSH Past Medical History Medical History ADD (attention deficit disorder) Surgical History Surgical History History of tonsillectomy Family History Family History Father Hypertension Sibling Depression Heart disease Social History Social History Smoking status: Never smoker Alcohol intake: never Substance use: never Substance use type: does not use Do You Feel Safe in your Home?: Yes Lack of Transportation: No Lack of Food: Never True Current Housing: I Have Housing Concerned About Future Housing: No Difficulty Paying Gas/Electric Bills: No Difficulty Paying for Meds: No Currently Unemployed: No Education: Don't Know Difficulty w/ Childcare or Family Care: No Living arrangements: with family Additional living arrangements comments: Occupation/Education: occupation Additional occupation/education comments: [employer] Gender identity (if verbalized by the patient): Female Spiritual care concerns: No Agree to blood products: Yes Meds Home Medications and Allergies Home Medications ?Medication ?Instructions ?Recorded ?Confirmed ?Type famotidine 20 mg tablet 20 mg PO DAILY #90 tabs 09/13/23 08/16/24 Rx montelukast 10 mg tablet 10 mg PO DAILY 01/23/24 08/06/24 History ondansetron 4 mg disintegrating 4 mg PO Q8H PRN nausea and 07/13/24 08/06/24 Rx tablet vomiting #60 tabs omeprazole 40 mg capsule,delayed 40 mg PO DAILY #30 caps 07/16/24 08/16/24 Rx release dextroamphetamine-amphetamine 10 10 mg PO DAILY #30 tabs 08/14/24 08/16/24 Rx mg tablet dextroamphetamine-amphetamine 20 20 mg PO DAILY #30 tabs 08/14/24 08/16/24 Rx mg tablet Allergies Allergy/AdvReac Type Severity Reaction Status Date / Time codeine Allergy Mild Itching Verified 08/16/24 12:08 Vital Signs Vital Signs - 24 hr 08/16/24 12:09 Temperature 97 F L Pulse Rate 80 Respiratory Rate 18 Blood Pressure 151/101 H Pulse Oximetry 97 Oxygen Delivery Room Air Exam Const: General: cooperative and healthy appearing Resp: Effort & Inspection: normal respiratory effort and able to speak in complete sentences Auscultation: clear to auscultation bilaterally Cardio: Rate: regular rate Rhythm: regular rhythm GI: Inspection: normal to inspection GI Palp: No No hepatosplenomegaly present Auscultation: normal bowel sounds Rectal Exam: deferred Skin: General skin exam: normal color Psych: Appearance: grossly normal Mental Status: mental status grossly normal Assessment and Plan Assessment and plan (1) Lower abdominal pain: Code(s): R10.30 - Lower abdominal pain, unspecified Status: Acute Assessment and Plan: The patient is deemed a good candidate for the procedures. Consent signed. Will proceed. (2) Diarrhea: Qualifiers: Diarrhea type: unspecified type Qualified Code(s): R19.7 - Diarrhea, unspecified Code(s): R19.7 - Diarrhea, unspecified Status: Acute (3) Nausea and vomiting: Qualifiers: Vomiting type: bilious vomiting Qualified Code(s): R11.14 - Bilious vomiting Code(s): R11.2 - Nausea with vomiting, unspecified Status: Acute
--- NOTE | 2024-08-16 12:58 | SUR.OPER ---
EGD: ended 1248, COLON: started 1254
[2024-08-16 13:14] VITALS: BP 137/101; PULSE 85; RESP 13; O2SAT 100
[2024-08-16 13:24] VITALS: BP 141/98; PULSE 85; RESP 13; O2SAT 100
[2024-08-16 13:34] VITALS: BP 148/108; PULSE 62; RESP 19; O2SAT 100
[2024-08-16 13:42] VITALS: BP 136/86
== END 2024-08-16 13:53 | disposition home or self-care (01) ==
PROVIDERS: Anesthesiology; PCP Nurse Practitioner Family; Referring Provider Nurse Practitioner Family; Visit Provider Internal Medicine Gastroenterology
PROC: 0DJ08ZZ Inspection of Upper Intestinal Tract, Via Natural or Artificial Opening Endoscopic (ICD-10-PCS; CPT 45378; principal; 2024-08-16 13:30)
DX: K52.9 Noninfective gastroenteritis and colitis, unspecified (principal); R10.13 Epigastric pain; F98.8 Other specified behavioral and emotional disorders with onset usually occurring in childhood and adolescence
CPT/HCPCS: 43239; 45380; 88305; J2003; J2704; J7120

== ENCOUNTER 2024-10-12 12:47 | Emergency (ER) | payer BC, SELFPAY ==
[2024-10-12] VITALS (20 sets, daily range): BP systolic 108–140; BP diastolic 71–100; PULSE 70–90; RESP 12–20; TEMP 36.3; O2SAT 96–100
--- NOTE | ~2024-10-12 | XR_ITS ---
EXAMINATION: XR chest 2V 10/12/2024 13:21 INDICATION: Chest pain and dyspnea PROCEDURE: 2 view chest COMPARISON: 02/05/2019 FINDINGS: The lungs are clear. The cardiomediastinal silhouette is within normal limits. There are no pleural effusions. There is no pneumothorax suspected. IMPRESSION: 1: NO ACUTE CARDIOPULMONARY DISEASE. Reviewed, dictated and finalized at location A.
--- OUTSIDE RECORDS SUMMARY | 2024-10-12 12:50 | XMS_ITS ---
Author Organization [facility] ([address]) Address [address] [facility] [address] [place] [address] Care Team Providers Care Investor Relations Coordinator Name Role Phone Daniele Boswell Unavailable [phone] ZJt, Provider Unavailable Unavailab le Allergies Allergen (clinical drug ingredient) Drug/Non Drug Allergy documented on EMR Reaction Allergy Type Onset Date Status codeine Codeine Unknown Drug Allergy Active REASON FOR VISIT [facility] To [facility] Conversion Encounter Medications Medication SIG (Take, Route, Frequency, Duration) Notes Start Date End Date Status Fluticasone Propionate 50 MCG/ACT 2 spray(s) in each nostril BID for 30 day(s) Active Adderall 20 MG 1 tab(s) orally ONCE daily also 10 MG additional Active Encounters Encounter Location Date Provider Diagnosis [address] [address] 10/29/2023 Provider Marina Chronic rhinitis J31.0 Assessments Encounter Date Diagnosis (ICD Code) Assessment Notes Treatment Notes Treatment Clinical Notes Section Notes 10/29/2023 Chronic rhinitis (ICD-10 - J31.0) Plan Of Treatment Medication Medication Name Sig Start Date Stop Date Notes Fluticasone Propionate 50 MCG/ACT 2 spray(s) in each nostril BID for 30 day(s) Progress Notes * Kaye WATTS ADOB: [birth year] (39 yo F)Acc No.[id number]:10/29/2023 Patient: Kaye SALINAS Provider: Margarita travisCoyle :1985 A ge:38 Y S ex:Female Date:10/29/2023 Address:[address] [place] [address] [address], [id number] Subjective: * Chief Complaints: * 1 . [...] Procedure Codes: * Electronic signature of Prov tracyr ZZ-Migration on 10/12/2024 at 12:50 PM CDT Sign off status: Pending * Provider: Margarita Brenner Date: 0 10/29/2023 Generated for Frank phillips/Shameka/Vani on: 10/12/2024 12:50 PM CDT
--- OUTSIDE RECORDS SUMMARY | 2024-10-12 12:51 | XMS_ITS | Clinical Summary ---
Author Organization [facility] Address [address] [place] [address] Care Team Providers Care Workforce Planning Analyst Name Role Phone Kat Banks NP Primary Care Provider + Allergies Active Allergy [...] 9:12 AM CDT Height 157.5 cm (5' 2) 02/11/2021 9:12 AM CDT Body Mass Index 21.95 02/11/2021 9:12 AM CDT Plan of Treatment Not on file Insurance [place] [facility] Member Subscriber Plan / Payer (Ef fective 2014-Present) Name:Kaye Bobo Relation to Subscriber:Spouse Name:STEFANIEBRENDA Date of :1899 (Home) Address: [address] [place] [address] Payer ID:[id number] (NAIC) Type:[facility] Address: [facility] [address] [place] [id number] Care Teams Workforce Planning Analyst Relationship Specialty Start Date End Date Kat Banks NP PCP - General Nurse Practitioner 03/03/20
--- OUTSIDE RECORDS SUMMARY | 2024-10-12 12:51 | XMS_ITS | Patient Health Record ---
Author Organization [facility] [place] [facility] ([address]) Address [address] [place] [address] Care Team Providers Care Nurse Assessor Name Role Phone Daniele Boswell Unavailable [phone] ZZ-Migration, Provider Unavailable Unavailab le Allergies Allergen (clinical [...] W/U Status Risk Notes Problem Chronic rhinitis (61982484) Chronic rhinitis (J31.0) Active confirmed Problem Toxic effect of venom (29480855) Toxic effect of venom of ants, accidental (unintentional) , initial encounter (T63.421A) Active confirmed Encounters Encounter Location Date Provider Diagnosis [facility] [address] [address] 10/29/2023 Provider Marina Chronic rhinitis J31.0 Assessments Encounter Date Diagnosis (ICD Code) Assessment Notes Treatment Notes Treatment Clinical Notes Section Notes 10/29/2023 Chronic rhinitis (ICD-10 - J31.0) Plan Of Treatment No Information Insurance Providers Payer Name Payer Address Payer Phone Subscriber Number Group Number Insured Name Patient Relationship to Insured Coverage Start Date Coverage End Date [facility] [id number] [place] [address] [id number] Kaye Bobo Self - patient is the insured [employer] [address] [place] [id number] Kaye Bobo Self - patient is the insured Medical (General) History Medical History History ICD Code Depression ADHD Surgical History Surgery Date(Month/Year)
--- OUTSIDE RECORDS SUMMARY | 2024-10-12 12:51 | XMS_ITS | Data Portability ---
Author Organization [place] [facility] [employer], Main Office Address [address] [place] [address] Care Team Providers Care Associate Software Developer Name Role Phone DARIEN SANDERSON Primary Care Provider DARIEN SANDERSON Referring Provider [phone] Assessment Encounter Date Assessment Date Assessment LastModified [...] ED if any concerns. F/u as directed. Not available 01/04/2023 17:06:11 01/13/2023 01/13/2023 D/w [...] days if any concerns. F/u as directed. [email or web address] Not available 01/13/2023 11:08:57 Plan of Treatment Reminders Order Date Submit Date Provider Last Modified By Organization Details Last Modified Time Details Appointments None recorded. Lab None recorded. Referral None recorded. Procedures None recorded. Surgeries None recorded. Imaging None recorded. Medication Orders neomycin-po lymyxin-dex ameth 3.5 mg/mL-10,00 0 unit/mL-0.1 % eye drops 2022 023 [id number] [address], [place], [place], [id number], 3 11:01:13 Kenalog 40 mg/mL suspension for injection 2022 023 [email or web address] Not available 17:46:09 ondansetron 4 mg disintegrat ing tablet [address] [facility], [address], [place], [place], [id number], 3 16:34:30 fluticasone propionate 50 mcg/actuati on nasal spray,suspe nsion 2022 023 [facility], [address], [place], [place], [id number], 3 16:32:57 montelukast 10 mg tablet 2022 023 [facility], [address], [place], [place], [id number], 3 16:32:57 levocetiriz ine 5 mg tablet 2022 023 [facility], [address], [place], [place], [id number], 3 16:32:56 famotidine 20 mg tablet 2022 023 [facility], [address], [place], [place], [id number], 3 16:33:20 Patient TargetsNo targets recorded. Patient InstructionsNo instructions recorded. Reason for Referral None Reported. Results Created Date Observation Date Name Description Value Unit Range Abnormal Flag Note LastModifiedBy Organization Detail LastModifiedTime Result Notes None recorded. Problems Name Problem SNOMED Code Status Onset Date Resolution Date Notes Provider Name and Address Organization Details Recorded Time Lesion of skin of face 906270932175 Active 2021 Not Available [facility] 3 06:45:03 Excessive cerumen in ear canal 187347861 Active 2016 Not Available [facility] 3 06:45:03 Pain of right elbow joint 8386475100352 9109 Active 2018 Not Available [facility] 3 06:45:03 Otalgia 07937817 Active 2016 Not Available [facility] 3 06:45:03 Otalgia 75197469 Active 2016 Not Available [facility] 3 06:45:04 Pain of joint of wrist 230501816 Active Not Available [facility] 3 06:45:04 Anemia 366557479 Active Not Available [facility] 3 06:45:04 Attention deficit hyperactiv ity disorder, predominan tly inattentiv e type 98915322 Active 2017 Not Available [facility] 3 06:45:04 Sinusitis 88048404 Active Not Available [facility] 3 06:45:04 Disorder of vitamin D 205642596 Active 2020 Not Available [facility] 3 06:45:04 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 2019 Not Available [facility] 3 06:45:04 Attention deficit hyperactiv ity disorder 744772755 Active 2016 Not Available [facility] 3 06:45:04 Cellulitis of upper limb 341133196 Active Not Available [facility] 3 06:45:05 Anxiety 03622778 Active Not Available [facility] 3 06:45:05 Influenza 5908918 Active Not Available [facility] 3 06:45:05 Otitis media 95496910 Active 2016 Not Available [facility] 3 06:45:05 Otitis media 30031605 Active 2016 Not Available [facility] 3 06:45:05 Acid reflux 619865081 Active 2019 Not Available [facility] 3 06:45:05 Dysuria 72255678 Active 2022 Darien Sanderson NP [address], [place], [address] , [facility] 3 10:53:48 Allergic rhinitis 29357515 Active 2022 Chino Carmichael MD [address], [place], [address] , [facility] 3 16:30:25 Nasal congestion 60763322 Active 2022 Chino Carmichael MD [address], [place], [address] , [facility] 3 16:31:03 Gastroesop hageal reflux disease without esophagiti s 253518175 Active 2022 Chino Carmichael MD [address], [place], [address] , [facility] 3 16:33:02 Nausea and vomiting 02263021 Active 2022 Chino Carmichael MD [address], [place], [address] , [facility] 3 16:33:46 Allergic conjunctiv itis of bilateral eyes 0672258323932 02 Active 2022 Chino Carmichael MD [address], [place], [address] , [facility] 3 10:59:04 Pain of bilateral eyes 4137267668387 09 Active 2022 Chino Carmichael MD [address], [place], [address] , [facility] 3 11:07:36 Sensation of irritation of eye proper 818784459 Active 2022 Chino Carmichael MD [address], [place], [address] , [facility] 3 11:07:58 Photophobi a 417704304 Active 2022 Chino Carmichael MD [address], [place], [address] , [facility] [employer] [facility] 3 11:08:11 Problem Notes None recorded. Procedures Surgical History Date Name Laterality Status Provider Name and Address Organization Details Recorded Time excision of cyst of ovary completed Not Available [facility] 07/14/2022 06:39:30 Tonsillectomy completed Not Available [facility] 07/14/2022 06:39:30 Foot Surgery completed Not Available [facility] 07/14/2022 06:39:30 Imaging Results None recorded. Procedure Notes None recorded. Medical Equipment None Reported. Allergies Allergen ID Allergen Name Allergen Category Reaction Reaction Severity Criticality Documentation Date Start Date Code Code System Note Provider Name and Address Organization Details Recorded Time 06604 codeine medicatio n itching Not available Not available 07/14/2022 2670 RxNorm nause a Not Available [facility] 3 06:52:04 Medications Name Sig Start Date [...] propionate 50 mcg/actuati on nasal spray,suspe nsion [place] 2 sprays every day by intranasa l [...] % 74 /min 16 /min 98 [degF] 52230.3 1 g 122 mm[Hg] 82 mm[Hg] Not Available [facility] 3 06:40:39 Date Recorded Body height Body mass index (BMI) Body weight Body temperature Heart rate Respiratory rate Oxygen saturation Oxygen saturation in Arterial blood by Pulse oximetry Systolic blood pressure Diastolic blood pressure Provider Name and Address Organization Details Last Updated DateTime 3 156.21 cm 24.6 kg/m2 43498.2 9 g 96.8 [degF] 80 /min 16 /min 98 % 98 % 110 mm[Hg] 80 mm[Hg] Darien Marlow RN [facility] [employer] [facility] 3 16:28:23 Date Recorded Oxygen saturation Oxygen saturation in Arterial blood by Pulse oximetry Provider Name and Address Organization Details Last Updated DateTime 01/13/2023 98 % 98 % Chino Carmichael MD [address] [place] [address], [address], [facility] [employer] 01/13/2023 10:55:08 Date Recorded Body height Body mass index (BMI) Body weight Body temperature Heart rate Respiratory rate Systolic blood pressure Diastolic blood pressure Provider Name and Address Organization Details Last Updated DateTime 3 156.21 cm 24.2 kg/m2 44854.3 6 g 97.5 [degF] 85 /min 16 /min 118 mm[Hg] 70 mm[Hg] Umair Borrego [facility] [employer] 3 10:53:55 Date Recorded Body mass index (BMI) Body height Oxygen saturation Oxygen saturation in Arterial blood by Pulse oximetry Heart rate Body temperature Body weight Systolic blood pressure Diastolic blood pressure Provider Name and Address Organization Details Last Updated DateTime 2 22.5 kg/m2 156.21 cm 99 % 99 % 78 /min 97.5 [degF] 74368.3 8 g 112 mm[Hg] 78 mm[Hg] Not Available [facility] 3 06:40:39 Date Recorded Body mass index (BMI) Body height Oxygen saturation Oxygen saturation in Arterial blood by Pulse oximetry Heart rate Body temperature Body weight Systolic blood pressure Diastolic blood pressure Provider Name and Address Organization Details Last Updated DateTime 2 22.3 kg/m2 156.21 cm 99 % 99 % 84 /min 97.9 [degF] 65310.0 8 g 122 mm[Hg] 80 mm[Hg] Not Available [employer] 06:40:39 Social History Question Answer Notes LastModified by Organizat ion Details LastModified Time Tobacco Smoking Status Never Smoker Not Available [facility] 07/14/2022 06:39:10 Do You Have An Advance Directive? No MIGRATION.50662 81103 Information not available 07/14/2022 Is Blood Transfusion Acceptable In An Emergency? Yes Information not available 01/04/2023 What Is Your Level Of Caffeine Consumption? Occasional MIGRATION.27854 85636 Information not available 07/14/2022 How Much Tobacco Do You Chew? None MIGRATION.98518 80377 Information not available 07/14/2022 What Is Your Code Status? Full Code Information not available 01/04/2023 In The 14 Days Before Symptom Onset, Have You Had Close Contact With A Laboratory-confi rmed COVID-19 While That Case Was Ill? No MIGRATION.82922 59604 Information not available 07/14/2022 In The 14 Days Before Symptom Onset, Have You Had Close Contact With A Person Who Is Under Investigation For COVID-19 While That Person Was Ill? No MIGRATION.76729 17634 Information not available 07/14/2022 What Type Of Diet Are You Following? REGULAR MIGRATION.66081 04344 Information not available 07/14/2022 How Many Days Of Moderate To Strenuous Exercise, Like A Brisk Walk, Did You Do In The Last 7 Days? 4 Information not available 01/04/2023 Have There Been Any Changes To Your Family Or Social Situation? No Information not available 01/04/2023 Do You Use Insect Repellent Routinely? Yes MIGRATION.86264 77612 Information not available 07/14/2022 Where Do You Live? SingleLevelHouse Information not available 01/04/2023 Do You Have A Medical Power Of Spinning Machine Tender? No MIGRATION.45146 81970 Information not available 07/14/2022 What Was The Date Of Your Most Recent Tobacco Screening? 04/02/2022 MIGRATION.12232 80741 Information not available 07/14/2022 How Many Children Do You Have? 0 Information not available 01/04/2023 Have You Ever Been Counseled For Unhealthy Alcohol Use? No MIGRATION.96819 23156 Information not available 07/14/2022 Do You Have Any Pets? Yes Information not available 01/04/2023 What Is Your Relationship Status? Information not available 01/04/2023 Do You Use Your Seat Belt Or Car Seat Routinely? Yes MIGRATION.38965 35818 Information not available 07/14/2022 Do You Have Smoke And Carbon Monoxide Detectors In Your Home? Yes MIGRATION.17189 56069 Information not available 07/14/2022 Are You Passively Exposed To Smoke? No MIGRATION.59570 87548 Information not available 07/14/2022 Are There Any Smokers In Your House? No MIGRATION.75860 42251 Information not available 07/14/2022 How Much Tobacco Do You Smoke? No MIGRATION.66474 24016 Information not available 07/14/2022 Do You Participate In Social Media? Yes Information not available 01/04/2023 What Types Of Sporting Activities Do You Participate In? Coaches Gymnastics Information n ot available 01/04/2023 Do You Use Sunscreen Routinely? Yes MIGRATION.82597 72730 Information not available 07/14/2022 Has Tobacco Cessation Counseling Been Provided? No MIGRATION.65608 44222 Information not available 07/14/2022 Have You Recently Traveled Abroad? No MIGRATION.08622 30044 Information not available 07/14/2022 Do You Have Any Dietary Restrictions? No MIGRATION.01450 78817 Information not available 07/14/2022 Sex: Unknown Functional Status Question Answer Note LastModified by Organizat ion Details LastModified Time Do you use any illicit or recreational drugs? No MIGRATION.836339 4446 Information not available 07/14/2022 Do you or have you ever used any other forms of tobacco or nicotine? No MIGRATION.208992 3838 Information not available 07/14/2022 What is your level of alcohol consumption? Occasional MIGRATION.625636 2768 Information not available 07/14/2022 Do you or have you ever used smokeless tobacco? 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 Never used electronic cigarettes MIGRATION.497749 0311 Information not available 07/14/2022 What is your exercise level? Moderate MIGRATION.306525 0950 Information not available 07/14/2022 Mental Status Question Answer Note LastModified by Organization D etails LastModified Time Do you feel stressed (tense, restless, nervous, or anxious, or unable to sleep at night)? EN6848-5 Information not available 01/04/2023 Family History Relationship Description Onset Age of this Age Resolved Age Notes LastModified by Organization Details LastModified Time Mother No current problems or disability MIGRATION.657 [id number] Not available 07/14/2022 06:39:31 Father Hypertensive disorder MIGRATION.079 [id number] Not available 07/14/2022 06:39:31 Sister of unknown cause 25 MIGRATION.580 [id number] Not available 07/14/2022 06:39:32 Medical History Condition Response BLINDNESS N RHEUMATIC FEVER N KIDNEY STONES N BLADDER PROBLEMS N MRSA N OTHER # 1 N POLIO N LUNG DISEASE/DISORDER N RADIATION / CHEMOTHERAPY N COPD N Other # 2 N BLOOD DISEASES N SURGERY N EAR OR HEARING PROBLEMS N MUMPS N BOWEL PROBLEMS N FEMALE PROBLEMS / INFECTIONS N DEPRESSION (INCLUDING POST ) N STROKE/TIA [...] GLAUCOMA N FOOT PROBLEM N DIVERTICULITIS N CHICKENPOX N SLEEP APNEA N ALLERGIES/HAYFEVER N INFECTIOUS DISEASE N HEART ARRHYTHMIA N PROSTATE N INSOMNIA N HIGH CHOLESTEROL / HYPERLIPIDEMIA N HYPERTHYROIDISM N EYE PROBLEMS N EATING DISORDER N NEUROLOGICAL PROBLEMS N EDEMA N CHRONIC PAIN SYNDROME N HYPOTHYROIDISM N CAROTID BLOCKAGE N CONSTIPATION N BACK / NECK PROBLEMS N HAVE YOU BEEN HOSPITALIZED OR SEEN IN [facility] IN THE PAST YEAR ? [...] DISORDER N ALZHEIMER'S DISEASE N PAIN N HERPES N DEMENTIA N HEADACHES/MIGRAINES N SEIZURES/EPILEPSY N VASCULAR DISEASE N PACEMAKER N DIZZINESS N HEART DISEASE/HEART PROBLEMS N KIDNEY DISEASE N DEVELOPMENTAL OR BEHAVIORAL DISORDERS N MULTIPLE SCLEROSIS N SCARLET FEVER N MENTAL DISORDER/ILLNESS N CARDIAC ARRHYTHMIA N CANCER: SPECIFY N PNEUMONIA N ATRIAL FIBRILLATION N Gall [...] Recorded Time Tdap 04/15/2019 completed Not Available [facility] 07/14/2022 06:51:42 Past Encounters Encounter ID Performer Location Encounter Start Date Encounter Closed Date Diagnosis/Indication Diagnosis SNOMED-CT Code Diagnosis ICD10 Code Diagnosis Note [id number] Chino Carmichael MD [address] [address] 08/20/2020 00:00:00 08/20/2020 12:44:04 [id number] _ATHN_MIGR ATION_1 _ATHENA_M IGRATION_ DEFAULT_1 _1 , 10/28/2020 00:00:00 10/28/2020 17:38:26 [id number] _ATHN_MIGR ATION_1 _ATHENA_M IGRATION_ DEFAULT_1 _1 , 03/17/2021 00:00:00 03/17/2021 12:21:50 [id number] Chino Carmichael MD [address] [address] 04/07/2021 00:00:00 04/07/2021 18:11:56 [id number] Chino Carmichael MD [address] [address] 04/16/2021 00:00:00 04/16/2021 10:20:25 [id number] Chino Carmichael MD [address] [address] 08/21/2021 00:00:00 08/21/2021 12:21:03 [id number] _ATHN_MIGR ATION_1 _ATHENA_M IGRATION_ DEFAULT_1 _1 , 09/08/2021 00:00:00 09/08/2021 10:01:07 [id number] _ATHN_MIGR ATION_1 _ATHENA_M IGRATION_ DEFAULT_1 _1 , 04/02/2022 00:00:00 04/02/2022 11:14:12 [id number] Chino Carmichael MD [address] [address] 04/21/2022 00:00:00 04/21/2022 11:45:01 [id number] Chino Carmichael MD [address] [address] 01/04/2023 16:15:36 01/04/2023 17:15:06 Allergic rhinitis 75959956 J30.9 Nasal congestion 3465200 0 R09.81 Gastroesop hageal reflux disease without esophagitis 957995433 K21.9 Nausea and vomiting 1693 2000 R11.2 [id number] Chino Carmichael MD [address] [address] 01/13/2023 10:47:40 01/13/2023 11:11:12 Allergic conjunctivitis of bilateral eyes 8358835544 76270 H10.13 Pain of bi lateral eyes 0578937233 30962 H57.13 Sensation of irritation of eye proper 522548962 H57.89 Photophobia 379538451 H5 3.149 Health Concerns Section Related Observation LastModified by Organization Detai ls LastModified Time None Recorded Concern Status LastModified by Organization Details LastModified Time None Recorded Advance Directives Directive N: Payers Encounter Date Sequence Insurance Name Policy Number Policy Guevara Covered Member ID Guevara Member ID Guarantor Name 01/04/2023 1 [place] [id number] Jeb Bobo [id number] Kaye Bobo 01/13/2023 1 [place] [id number] Jeb Bobo [id number] Kaye Bobo Notes Date Note Type Note Provider Name and Address Organization Details Recorded Time 01/04/2023 text/html ACV: C/o chronic allergies that got bad for last week. Pt is leaving for a trip to [place] and wants to get better for it. Pt has contacted an coal pulverizing operator, but can not see them until 04/07. Denies any sick contact. C/o chronic gerd and heart burn and its not controlled with otc meds. Nausea and vomiting ++, denies any BM issues/blood in stool. Denies any urinary symptoms/fever/chi lls. Denies any chance of . Chino Carmichael MD [address], [facility] [employer], [place], [address], [employer] 01/04/2023 17:07:18 01/13/2023 text/html ACV: C/o b/l [...] off for today. Chino Carmichael MD [address], [facility] [address], [place], [address], [employer] 01/13/2023 11:09:17 OBGyn Episode No OBEpisode recorded.
--- OUTSIDE RECORDS SUMMARY | 2024-10-12 12:51 | XMS_ITS | Referral Summary ---
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
--- OUTSIDE RECORDS SUMMARY | 2024-10-12 12:51 | XMS_ITS | Data Portability ---
Author Organization [place] - [facility], [facility]_ Family Practice Address [address] [place] [address] Care Team Providers Care Technical Education Teacher Name Role Phone DARIEN SANDERSON Primary Care Provider DARIEN SANDERSON Referring Provider [phone] RALPH PAULSON Primary Care Provider DOT CAST Psychiatrist Assessment No assessment recorded. Plan [...] Recorded Time Lesion of skin of face 197666800726 Active 2021 Not Available [facility] 3 19:01:15 Excessive cerumen in ear canal 879495594 Active 2016 Not Available [facility] 3 19:01:15 Pain of right elbow joint 0985340011302 9109 Active 2018 Not Available [facility] 3 19:01:15 Otalgia 50773235 Active 2016 Not Available [facility] 3 19:01:15 Otalgia 35858686 Active 2016 Not Available [facility] 3 19:01:15 Pain of joint of wrist 945155122 Active Not Available [facility] 3 19:01:15 Anemia 251337802 Active Not Available [facility] 3 19:01:15 Attention deficit hyperactiv ity disorder, predominan tly inattentiv e type 42371246 Active 2017 Not Available [facility] 3 19:01:15 Sinusitis 99205439 Active Not Available [facility] 3 19:01:16 Disorder of vitamin D 706107756 Active 2020 Not Available [facility] 3 19:01:16 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 Not Available [facility] 3 19:01:16 Attention deficit hyperactiv ity disorder 525198698 Active 2016 Not Available [facility] 3 19:01:16 Cellulitis of upper limb 636518192 Active Not Available [facility] 3 19:01:16 Anxiety 75663576 Active Not Available [facility] 3 19:01:16 Influenza 1858582 Active Not Available [facility] 3 19:01:16 Otitis media 45304595 Active 2016 Not Available [facility] 3 19:01:16 Otitis media 76354700 Active 2016 Not Available [facility] 3 19:01:16 Acid reflux 830959769 Active 2019 Not Available [facility] 3 19:01:16 Problem Notes None recorded. Procedures Surgical History Date Name Laterality Status Provider Name and Address Organization Details Recorded Time excision of cyst of ovary completed Not Available [facility] 05/23/2022 18:59:45 Tonsillectomy completed Not Available [facility] th 05/23/2022 18:59:45 Foot Surgery completed Not Available [facility] 05/23/2022 18:59:45 Imaging Results None recorded. Procedure Notes None recorded. Medical Equipment None Reported. Allergies Allergen ID Allergen Name Allergen Category Reaction Reaction Severity Criticality Documentation Date Start Date Code Code System Note Provider Name and Address Organization Details Recorded Time [id number] codeine medicatio n itching Not available Not available 05/23/2022 2670 RxNorm nause a Not Available [facility] 3 19:02:45 Medications Name Sig Start Date [...] propionate 50 mcg/actuat ion nasal spray,susp ension Barnes 2 sprays every day by intranas al [...] 90 DAYS active per psychia try. Dr Dot Cast Not Available Not Available Not Available [...] % 98 % 80 /min 98.2 [degF] 15893.5 3 g 122 mm[Hg] 82 mm[Hg] Not Available [facility] 3 19:00:12 Date Recorded Body mass index (BMI) Body height Oxygen saturation Oxygen saturation in Arterial blood by Pulse oximetry Heart rate Respiratory rate Body temperature Body weight Systolic blood pressure Diastolic blood pressure Provider Name and Address Organization Details Last Updated DateTime 2 21.7 kg/m2 156.21 cm 98 % 98 % 74 /min 16 /min 98 [degF] 67509.3 1 g 122 mm[Hg] 82 mm[Hg] Not Available [facility] 3 19:00:12 Date Recorded Body height Body mass index (BMI) Body weight Body temperature Heart rate Oxygen saturation Oxygen saturation in Arterial blood by Pulse oximetry Systolic blood pressure Diastolic blood pressure Provider Name and Address Organization Details Last Updated DateTime 3 156.21 cm 25.3 kg/m2 79073.5 6 g 97.6 [degF] 76 /min 98 % 98 % 116 mm[Hg] 78 mm[Hg] [facility] 3 09:15:11 Date Recorded Body mass index (BMI) Body height Oxygen saturation Oxygen saturation in Arterial blood by Pulse oximetry Heart rate Body temperature Body weight Systolic blood pressure Diastolic blood pressure Provider Name and Address Organization Details Last Updated DateTime 2 22.5 kg/m2 156.21 cm 99 % 99 % 78 /min 97.5 [degF] 31470.3 8 g 112 mm[Hg] 78 mm[Hg] Not Available [facility] 3 19:00:12 Date Recorded Body mass index (BMI) Body height Oxygen saturation Oxygen saturation in Arterial blood by Pulse oximetry Heart rate Body temperature Body weight Systolic blood pressure Diastolic blood pressure Provider Name and Address Organization Details Last Updated DateTime 2 22.3 kg/m2 156.21 cm 99 % 99 % 84 /min 97.9 [degF] 77040.0 8 g 122 mm[Hg] 80 mm[Hg] Not Available [facility] 3 19:00:12 Social History Question Answer Notes LastModified by Smart Balloonat ion Details LastModified Time Tobacco Smoking Status Never Smoker Not Available [facility] 05/23/2022 18:59:32 Do You Have An Advance Directive? No [id number] Information not available 05/23/2022 What Is Your Level Of Caffeine Consumption? Occasional MIGRATION.[id number] 2875 Information not available 05/23/2022 How Much Tobacco Do You Chew? None MIGRATION.971637 9093 Information not available 05/23/2022 In The 14 Days Before Symptom Onset, Have You Had Close Contact With A Laboratory-confirm ed COVID-19 While That Case Was Ill? No MIGRATION.[id number] 7190 Information not available 05/23/2022 In The 14 Days Before Symptom Onset, Have You Had Close Contact With A Person Who Is Under Investigation For COVID-19 While That Person Was Ill? No MIGRATION.977009 0384 Information not available 05/23/2022 What Type Of Diet Are You Following? REGULAR MIGRATION.514310 0234 Information not available 05/23/2022 Do You Use Insect Repellent Routinely? Yes MIGRATION.013063 0175 Information not available 05/23/2022 Are You In An Abusive/frightenin g Relationship? No MIGRATION.493401 0711 Information not available 05/23/2022 Do You Feel Safe At Home Yes MIGRATION.377797 0753 Information not available 05/23/2022 Do You Have A Medical Power Of Dray Truck Driver? No MIGRATION.477877 5020 Information not available 05/23/2022 What Was The Date Of Your Most Recent Tobacco Screening? 04/27/2023 [email or web address] Information not available 04/27/2023 Have You Ever Been Counseled For Unhealthy Alcohol Use? No MIGRATION.592569 8028 Information not available 05/23/2022 Do You Use Your Seat Belt Or Car Seat Routinely? Yes MIGRATION.425435 4356 Information not available 05/23/2022 Do You Have Smoke And Carbon Monoxide Detectors In Your Home? Yes MIGRATION.881731 7101 Information not available 05/23/2022 Are You Passively Exposed To Smoke? No MIGRATION.168946 4109 Information not available 05/23/2022 Are There Any Smokers In Your House? No MIGRATION.442492 2908 Information not available 05/23/2022 How Much Tobacco Do You Smoke? No MIGRATION.941358 8544 Information not available 05/23/2022 Do You Use Sunscreen Routinely? Yes MIGRATION.028509 1124 Information not available 05/23/2022 Has Tobacco Cessation Counseling Been Provided? No MIGRATION.829414 7524 Information not available 05/23/2022 Have You Recently Traveled Abroad? No MIGRATION.786025 2949 Information not available 05/23/2022 Do You Have Any Dietary Restrictions? No MIGRATION.120450 7505 Information not available 05/23/2022 Sex: Unknown Functional Status Question Answer Note LastModified by Organizat ion Details LastModified Time Do you use any illicit or recreational drugs? No MIGRATION.372996 4602 Information not available 05/23/2022 Do you or have you ever used any other forms of tobacco or nicotine? No MIGRATION.315485 9444 Information not available 05/23/2022 What is your level of alcohol consumption? Occasional MIGRATION.430595 1639 Information not available 05/23/2022 Do you or have you ever used smokeless tobacco? Never used smokeless tobacco MIGRATION.206229 8085 Information not available 05/23/2022 Are you currently employed? 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 Never used electronic cigarettes MIGRATION.691723 7885 Information not available 05/23/2022 What is your exercise level? Moderate MIGRATION.245838 8636 Information not available 05/23/2022 Mental Status None recorded. Family History Relationship Description Onset Age of this Age Resolved Age Notes LastModified by Organization Details LastModified Time Mother No current problems or disability [id number] Not available 05/23/2022 18:59:45 Father Hypertensive disorder MIGRATION.208 [id number] Not available 05/23/2022 18:59:45 Sister of unknown cause 25 MIGRATION.593 [id number] Not available 05/23/2022 18:59:45 Medical History Condition Response BLINDNESS N RHEUMATIC FEVER N KIDNEY STONES N BLADDER PROBLEMS N MRSA N OTHER # 1 N POLIO N LUNG DISEASE/DISORDER N COPD N RADIATION / CHEMOTHERAPY N Other # 2 N BLOOD DISEASES N SURGERY N EAR OR HEARING PROBLEMS N MUMPS N FEMALE PROBLEMS / INFECTIONS N DEPRESSION (INCLUDING POST ) N BOWEL PROBLEMS N STROKE/TIA N THYROID DISEASE N ULCERS N BENIGN PROSTATIC HYPERPLASIA N MEASLES N CERVICALGIA N TB SKIN TEST N MYOCARDIAL INFARCTION N OBESITY N PARAPELGIA N GERD/NAUSEA N ANEURYSM N URINARY/BLADDER/KIDNEY PROBLEMS [...] HAVE YOU BEEN HOSPITALIZED OR SEEN IN [facility] IN THE PAST YEAR ? N ATHEROSCLEROSIS [...] N PAIN N HERPES N DEMENTIA N SEIZURES/EPILEPSY N HEADACHES/MIGRAINES N VASCULAR DISEASE N PACEMAKER N DIZZINESS N KIDNEY DISEASE N HEART DISEASE/HEART PROBLEMS N SCARLET FEVER N MULTIPLE SCLEROSIS N MENTAL DISORDER/ILLNESS N DEVELOPMENTAL OR BEHAVIORAL DISORDERS N CARDIAC ARRHYTHMIA N CANCER: SPECIFY N PNEUMONIA N Gall Stones N ATRIAL FIBRILLATION N PULMONARY EMBOLISM N AUTOIMMUNE DISEASE N [...] Recorded Time Tdap 04/15/2019 completed Not Available [facility] 05/23/2022 19:02:34 Past Encounters Encounter ID Performer Location Encounter Start Date Encounter Closed Date Diagnosis/Indication Diagnosis SNOMED-CT Code Diagnosis ICD10 Code Diagnosis Note [id number] _ATHN_MIGR ATION_4 _ATHENA_M IGRATION_ DEFAULT_1 _4 , 08/20/2020 00:00:00 08/20/2020 12:44:04 [id number] SATISH Agarwal [facility] [address] [address] 10/28/2020 00:00:00 10/28/2020 17:38:26 [id number] KARIE Galicia [facility] [address] [place] [address] 03/17/2021 00:00:00 03/17/2021 12:21:50 [id number] _ATHN_MIGR ATION_4 _ATHENA_M IGRATION_ DEFAULT_1 _4 , 04/07/2021 00:00:00 04/07/2021 18:11:56 [id number] _ATHN_MIGR ATION_4 _ATHENA_M IGRATION_ DEFAULT_1 _4 , 04/16/2021 00:00:00 04/16/2021 10:20:25 [id number] _ATHN_MIGR ATION_4 _ATHENA_M IGRATION_ DEFAULT_1 _4 , 08/21/2021 00:00:00 08/21/2021 12:21:03 [id number] KARIE Galicia [facility] [address] [place] [address] 09/08/2021 00:00:00 09/08/2021 10:01:07 [id number] Marcela Humphrey MD [facility] [address] [place] [address] 04/02/2022 00:00:00 04/02/2022 11:14:12 [id number] _ATHN_MIGR ATION_4 _ATHENA_M IGRATION_ DEFAULT_1 _4 , 04/21/2022 00:00:00 04/21/2022 11:45:01 [id number] DINA POWELL MD [facility] [address] [place] [address] 10/14/2022 09:05:12 10/14/2022 09:27:02 Attention deficit hyperactivity disorder [id number] F90.9 Will continue current medication s. Patient [...] None Recorded Advance Directives Directive N: Payers Insurance Date Sequence Insurance Name Policy Number Policy Guevara Covered Member ID Guevara Member ID Guarantor Name 05/11/2023 1 [place] [id number] Jeb Bobo [id number] Osmany Bobo Notes Date Note Type Note Provider Name and Address Organization Details Recorded Time 10/14/2022 text/html Pt presents for f/u ADHD medications.who is rx vraylar? seeing Psychiatry When do you take meds:Everyday: yesMedication effects: noneDoing fine with work:Side effects: deniesAppetite: doing wellRegular routine: yesSleep: good sleepDenies SI/HI, CP, SOB, palpitations. Ralph Paulson NP [address] [place] [address],[address], [place], [address], [facility] 10/14/2022 09:52:40 OBGyn Episode No OBEpisode recorded.
--- NOTE | 2024-10-12 12:53 | ECG_ITS ---
Test Date: 2024-10-12 12:55:31 Measurements Intervals M[place]od Rate: 88 P: 56 OH: 154 QRS: 32 QRSD: 87 T: 50 QT: 360 QTc: 437 Interpretive Statements SINUS RHYTHM POSSIBLE LEFT ATRIAL ENLARGEMENT [-0.1mV P WAVE IN V1/V2] POSSIBLE RIGHT VENTRICULAR CONDUCTION DELAY [RSR (QR) IN V1/V2] MINIMAL ST DEPRESSION [0.025+ mV ST DEPRESSION] No previous ECG available for comparison Electronically Signed On 10-12-2024 15:10:35 CDT by Romaine Carmichael M.D.
[2024-10-12 13:12] LABS: Basophils Absolute Auto 0.1 K/mm3 (0.0-0.1); Basophils Percent Auto 0.7 % (0.2-1.2); Eosinophils Absolute Auto 0.1 K/mm3 (0-0.3); Eosinophils Percent Auto 1.4 % (0-4.4); Hematocrit 39.8 % (37.0-47.0); Hemoglobin 13.2 g/dL (12.0-15.0); Immature Granulocyte Absolute 0.02 K/mm3 (0.00-0.031); Immature Granulocyte Percent A 0.3 % (0-0.5); Lymphocytes Absolute Auto 1.05 K/mm3 (0.9-3.2); Mean Corpuscular HGB Conc 33.2 g/dl (32-36); Mean Corpuscular Hemoglobin 31.8 pg (26-34); Mean Corpuscular Volume 95.9 fl (80-100); Mean Platelet Volume 8.6 fl (7.4-10.4); Monocytes Absolute Auto 0.6 K/mm3 (0.1-0.6); Neutrophils Absolute Auto 5.2 K/mm3 (1.3-6.7); Neutrophils Percent Auto 73.6 % (45.5-73.1); Platelet Count Result 238 k/mm3 (150-375); Red Blood Count 4.15 M/mm3 (4.2-5.4); Red Cell Distribution Width 15.9 % (11.5-14.5)
[2024-10-12 13:23] LABS: Alanine Aminotransferase 48 U/L (6-35); Albumin Level 4.3 g/dL (3.5-5.1); Alkaline Phosphatase 124 U/L (38-126); Anion Gap 8 mmol/L (4-12); Aspartate Amino Transferase 77 U/L (14-36); Bilirubin,Total 1.5 mg/dL (0.2-1.3); Blood Urea Nitrogen 14 mg/dL (7-17); Calcium 8.9 mg/dL (8.4-10.2); Carbon Dioxide 27 mmol/L (22-30); Chloride 101 mmol/L (98-107); Estimated CRCL calculation 72 ml/min; Estimated Glomerular Filt Rate > 60; Glucose 93 mg/dL (65-110); Lipase 41 U/L (23-300); Potassium 3.7 mmol/L (3.4-5.0); Sodium 136 mmol/L (137-145)
[2024-10-12 13:32] LABS: Prothrombin Time 13.9 Seconds (11.1-14.7)
[2024-10-12 13:33] LABS: Partial Thromboplastin Time 27.2 Seconds (22.3-36.8)
[2024-10-12 13:35] LABS: Troponin I < 0.012 ng/mL (0.000-0.034)
[2024-10-12] MEDS: ASPIRIN 81 MG CHEWABLE TABLET 324 MG PO (14:11)
[2024-10-12] MEDS: KETOROLAC 30 MG/ML VIAL (*BKC) IV PUSH (14:22)
--- OUTSIDE RECORDS SUMMARY | 2024-10-12 14:42 | XMS_ITS | Referral Summary ---
Author Organization [facility] Address [address] [place] [address] Care Team Providers Care Creative Coordinator Name Role Phone Jocelyn Kat Morse NP [...] Plan of Treatment Not on file Insurance [employer] [facility] [facility] [employer] [place] [address] Care Teams Creative Coordinator Relationship Specialty Start Date End Date Kat Bnaks NP PCP - General Nurse Practitioner 03/03/20
--- OUTSIDE RECORDS SUMMARY | 2024-10-12 14:42 | XMS_ITS | Clinical Summary ---
Author Organization [address] Address [address] [place] [address] Care Team Providers Care Solar Project Engineer Name Role Phone Kat Banks NP Primary [...] Plan of Treatment Not on file Insurance [employer] [place] [employer] [facility] Member Subscriber Plan / Payer (Ef fective 2014-Present) Name:Kaye Bobo Relation to Subscriber:Spouse Name:STEFANIEBRENDA Date of :1899 (Home) Address: [address] [place] [address] Payer ID:[id number] (NAIC) Type:[facility] Address: [facility] [id number] [place] [id number] Care Teams Solar Project Engineer Relationship Specialty Start Date End Date Kat Banks NP PCP - General Nurse Practitioner 03/03/20
--- NOTE | 2024-10-12 16:23 | ECG_ITS ---
Test Date: 2024-10-12 16:24:29 Measurements Intervals Jackson Rate: 71 P: 43 PA: 161 QRS: 27 QRSD: 89 T: 52 QT: 406 QTc: 442 Interpretive Statements SINUS RHYTHM POSSIBLE LEFT ATRIAL ENLARGEMENT [-0.1mV P-WAVE IN V1/V2] POSSIBLE RIGHT VENTRICULAR CONDUCTION DELAY [RSR (QR) IN V1/V2] BORDERLINE ECG Compared to ECG 10/12/2024 12:55:31 NO SIGNIFICANT CHANGE Electronically Signed On 10-13-2024 07:36:47 CDT by Tristan Correa M.D.
--- NOTE | 2024-10-12 17:09 | ED_ITS ---
HPI - General Adult General Chief complaint: Chest Pain Stated complaint: chest pain Time Seen by Provider: 10/12/24 14:10 History of Present Illness HPI narrative: Patient is a 31-year-old female who presents ER with chest pain. Aching and diffuse. Has had sinus congestion over last week. She has some mild cough and dyspnea. No hemoptysis. No exertional discomfort. No alleviating factors. Related Data Home Medications ?Medication ?Instructions ?Recorded ?Confirmed ?Last Taken ?Type montelukast 10 mg tablet 10 mg PO DAILY 01/23/24 09/18/24 Unknown History Allergies Allergy/AdvReac Type Severity Reaction Status Date / Time codeine Allergy Mild Itching Verified 10/12/24 12:50 Review of Systems 2 Review of Systems: All systems reviewed & are unremarkable except as noted in HPI and below Constitutional: Constitutional: Reports no additional constitutional complaints Cardiovascular: Cardiovascular: Reports no additional cardiovascular complaints Respiratory: Respiratory: Reports no additional respiratory complaints Gastrointestinal: Gastrointestinal: Reports no additional gastrointestinal complaints PMF Past Medical History Medical History ADD (attention deficit disorder) Surgical History Surgical History History of tonsillectomy Family History Family History Father Hypertension Sibling Depression Heart disease Social History Social History (Updated 09/18/24 @ 09:44 by Aaron Aden) Social History: 09/18/24 patient declined SDVT Smoking status: Never smoker Alcohol intake: never Substance use: never Substance use type: does not use Do You Feel Safe in your Home?: Yes Lack of Transportation: No Lack of Food: Never True Current Housing: I Have Housing Concerned About Future Housing: No Difficulty Paying Gas/Electric Bills: No Difficulty Paying for Meds: No Currently Unemployed: No Education: Don't Know Difficulty w/ Childcare or Family Care: No Living arrangements: with family Additional living arrangements comments: Occupation/Education: occupation Additional occupation/education comments: [employer] Gender identity (if verbalized by the patient): Female Spiritual care concerns: No Agree to blood products: Yes Exam 2 Narrative: GENERAL: Well-appearing, well-nourished, and in no acute distress. HEAD: Normocephalic, atraumatic. ENT: Mucous membranes moist. NECK: Supple. CHEST: Clear to auscultation. No respiratory distress. HEART: Regular rate and rhythm. Normal peripheral pulses. ABDOMEN: Soft, nontender, nondistended. EXTREMITIES: Normal range of motion. No edema. SKIN: Warm, dry, no rash. NEURO: Alert and oriented x3. PSYCH: Normal mood and affect. Course Course Emergency Course: Toradol helped improve discomfort. Troponin negative x2. No pneumonia. Appropriate for discharge. Vital Signs Vital signs: Vital Signs Temperature 97.4 F L 10/12/24 12:52 Pulse Rate 90 10/12/24 12:52 Respiratory Rate 16 10/12/24 12:52 Blood Pressure 140/100 H 10/12/24 12:52 Pulse Oximetry 99 10/12/24 12:52 Temperature 97.4 F L 10/12/24 12:52 Pulse Rate 78 10/12/24 16:40 Respiratory Rate 13 10/12/24 16:40 Blood Pressure 117/86 10/12/24 16:40 Pulse Oximetry 100 10/12/24 16:40 Oxygen Delivery Room Air 10/12/24 14:04 Medical Decision Making Vital Signs Vital Signs: Vital Signs Temperature 97.4 F L 10/12/24 12:52 Pulse Rate 90 10/12/24 12:52 Respiratory Rate 16 10/12/24 12:52 Blood Pressure 140/100 H 10/12/24 12:52 Pulse Oximetry 99 10/12/24 12:52 Temperature 97.4 F L 10/12/24 12:52 Pulse Rate 78 10/12/24 16:40 Respiratory Rate 13 10/12/24 16:40 Blood Pressure 117/86 10/12/24 16:40 Pulse Oximetry 100 10/12/24 16:40 Oxygen Delivery Room Air 10/12/24 14:04 Lab Data 10/12/24 13:00 10/12/24 13:00 Labs: Lab Results 10/12/24 10/12/24 Range/Units 13:00 16:06 WBC 7.0 (4.5-10.0) K/mm3 RBC 4.15 L (4.2-5.4) M/mm3 Hgb 13.2 (12.0-15.0) g/dL Hct 39.8 (37.0-47.0) % MCV 95.9 (80-100) fl MCH 31.8 (26-34) pg MCHC 33.2 (32-36) g/dl RDW 15.9 H (11.5-14.5) % Plt Count 238 (150-375) k/mm3 MPV 8.6 (7.4-10.4) fl Immature Gran % (Auto) 0.3 (0-0.5) % Neut % (Auto) 73.6 H (45.5-73.1) % Lymph % (Auto) 15.0 L (18.3-44.2) % Schley % (Auto) 9.0 H (2.6-8.5) % Eos % (Auto) 1.4 (0-4.4) % Baso % (Auto) 0.7 (0.2-1.2) % Lymph # (Auto) 1.05 (0.9-3.2) K/mm3 Schley # (Auto) 0.6 (0.1-0.6) K/mm3 Eos # (Auto) 0.1 (0-0.3) K/mm3 Baso # (Auto) 0.1 (0.0-0.1) K/mm3 Abs Immat Gran (auto) 0.02 (0.00-0.031) K/mm3 Absolute Neuts (auto) 5.2 (1.3-6.7) K/mm3 Absolute Nucleated RBC 0.000 (0.0-0.012) K/mm3 Nucleated RBC % 0.0 (0.0-0.2) % PT 13.9 (11.1-14.7) Seconds INR 1.0 APTT 27.2 (22.3-36.8) Seconds Sodium 136 L (137-145) mmol/L Potassium 3.7 (3.4-5.0) mmol/L Chloride 101 (98-107) mmol/L Carbon Dioxide 27 (22-30) mmol/L Anion Gap 8 (4-12) mmol/L BUN 14 D (7-17) mg/dL Creatinine 0.72 (0.7-1.0) mg/dL Estim Creat Clear Calc 72 ml/min Estimated GFR > 60 (59 - ) Glucose 93 (65-110) mg/dL Calcium 8.9 (8.4-10.2) mg/dL Total Bilirubin 1.5 H (0.2-1.3) mg/dL AST 77 H (14-36) U/L ALT 48 H (6-35) U/L Alkaline Phosphatase 124 (38-126) U/L Troponin I < 0.012 < 0.012 (0.000-0.034) ng/mL Total Protein 7.0 (6.3-8.2) g/dL Albumin 4.3 (3.5-5.1) g/dL Lipase 41 (23-300) U/L Imaging Data Radiologist's impression: ITS Impressions Chest X-Ray 10/12/24 13:34 IMPRESSION: 1: NO ACUTE CARDIOPULMONARY DISEASE. ECG Data EKG #1: ECG completion date: 10/12/24 ECG completion time: 16:24 EKG Interpretation: normal rate (71), sinus rhythm, non-specific ST changes, normal QRS and normal QT Discharge Plan Discharge Clinical Impression: Viral URI, Pleurisy Patient Disposition: Home Condition: Stable Instructions: Chest Wall Pain (ED) Additional Instructions: Please return to the emergency department if you develop severe and persistent chest pain, difficulty breathing, dizziness, leg swelling or if you are coughing up blood as these can be signs of a medical emergency. Please call your doctor for a follow up appointment to determine the need for further testing. Patient Language: Norwegian Prescriptions: New naproxen 375 mg tablet 375 mg PO BID Qty: 14 0RF No Action montelukast 10 mg tablet 10 mg PO DAILY Patient Comments: pt states does not take regularly ondansetron 4 mg tablet,disintegrating 4 mg PO Q8H PRN (Reason: nausea and vomiting) Qty: 60 3RF omeprazole 40 mg capsule,delayed release(DR/EC) 40 mg PO DAILY Qty: 30 2RF lisinopril 20 mg tablet 20 mg PO DAILY Qty: 90 0RF dextroamphetamine-amphetamine 10 mg tablet 10 mg PO DAILY Qty: 30 0RF Rx Instructions: at 1130 am dextroamphetamine-amphetamine 20 mg tablet 20 mg PO DAILY Qty: 30 0RF Follow-up/Referrals: Kat Banks APRN [Primary Care Provider] - 1 Week
[2024-10-12 17:33] LABS: Troponin I < 0.012 ng/mL (0.000-0.034)
== END 2024-10-12 18:32 | disposition home or self-care (01) ==
PROVIDERS: Emergency Provider Emergency Medicine; PCP Nurse Practitioner Family
DX: J06.9 Acute upper respiratory infection, unspecified (principal); R09.1 Pleurisy
CPT/HCPCS: 36415; 71046; 80053; 83690; 84484; 85025; 85610; 85730; 93005; 96374; 99284; A9270; J1885